=== PATIENT | female | born 1990 | race Caucasian/White ===

== ENCOUNTER 2016-09-25 16:45 | Emergency (ER) | payer SELFPAY ==
[2016-09-25 17:20] VITALS: BP 120/74
--- NOTE | 2016-09-25 18:34 | EDM.PDOC ---
ED [facility] GENERAL MEDICAL PROBLEM - General Chief Complaint: IT APPLICATION ARCHITECT Problem Stated Complaint: PT HAS STOMACH PAINS, AND BLEEDING Time Seen by Provider: 09/25/16 17:05 Source of Information: Reports: Patient History Limitations: Reports: No Limitations - History of Present Illness INITIAL COMMENTS - FREE TEXT/NARRATIVE: History of present illness: [26-year-old female comes in complaining acute abdominal pain, and vaginal bleeding. Patient indicates that she is not using control and was told she can be in the past and has in fact had a few miscarriages.] Review of systems: As per history of present illness and below otherwise all systems reviewed and negative. Past medical history: As per history of present illness and as reviewed below otherwise noncontributory. Surgical history: As per history of present illness and as reviewed below otherwise noncontributory. Social history: No reported history of drug or alcohol abuse. Family history: As per history of present illness and as reviewed below otherwise noncontributory. Physical exam: HEENT: Atraumatic, normocephalic, pupils reactive, negative for conjunctival pallor or scleral icterus, mucous membranes moist, throat clear, neck supple, nontender, trachea midline. Lungs: Clear to auscultation, breath sounds equal bilaterally, chest nontender. Heart: S1S2, regular, negative for clicks, rubs, or JVD. Abdomen: Soft, nondistended, nontender. Negative for masses or hepatosplenomegaly. Negative for costovertebral tenderness. Pelvis: Stable nontender. Genitourinary: Deferred. Rectal: Deferred. Extremities: Atraumatic, negative for cords or calf pain. Neurovascular unremarkable. Neuro: Awake, alert, oriented. Cranial nerves II through XII unremarkable. Cerebellum unremarkable. Motor and sensory unremarkable throughout. Exam nonfocal. Global assessment is benign save is noted in the subjective clinic complaint within the HPI Diagnostics: [First trimester vaginal bleeding workup] Therapeutics: [] Impression: [Vaginal bleeding] Plan: [Followup with PCP in 3-7 days] Definitive disposition and diagnosis as appropriate pending reevaluation and review of above. Abdominal Pain Score (Numeric/FACES): 5 - Related Data Allergies Allergy/AdvReac Type Severity Reaction Status Date / Time codeine Allergy Other Verified 09/25/16 17:05 Home Meds: Home Meds . [No Known Home Meds] 09/25/16 [History] Past Medical History - Past Health History Medical/Surgical History: Denies Medical/Surgical History Social & Family History - Tobacco Use Smoking Status *Q: Current Every Day Smoker Years of Tobacco use: 5 Packs/Tins Daily: 0.5 - Caffeine Use Caffeine Use: Reports: None - Recreational Drug Use Recreational Drug Use: No ED ROS GENERAL - Review of Systems Review Of Systems: See Below (History of present illness) ED EXAM, GENERAL - Physical Exam Exam: See Below (See history of present illness) Course - Vital Signs Last Recorded V/S: Last Vital Signs Temp 36.6 C 09/25/16 17:05 Pulse 116 H 09/25/16 17:05 Resp 18 09/25/16 17:05 BP 120/74 09/25/16 17:05 Pulse Ox 97 09/25/16 17:05 - Orders/Labs/Meds Orders: Active Orders 24 hr Category Date Time Status OB 1st Tri Sgl 1st Gest [US] Stat Exams 09/25/16 17:09 Ordered Labs: Laboratory Tests 09/25/16 09/25/16 09/25/16 Range/Units 17:10 17:22 17:22 WBC 6.78 (4.0-11.0) K/uL RBC 4.50 (4.30-5.90) M/uL Hgb 13.6 (12.0-16.0) g/dL Hct 41.0 (36.0-46.0) % MCV 91.1 (80.0-98.0) fL MCH 30.2 (27.0-32.0) pg MCHC 33.2 (31.0-37.0) g/dL RDW Std Deviation 43.4 (28.0-62.0) fl RDW Coeff of Alvino 13 (11.0-15.0) % Plt Count 234 (150-400) K/uL MPV 10.10 (7.40-12.00) fL Neut % (Auto) 55.9 (48.0-80.0) % Lymph % (Auto) 38.8 (16.0-40.0) % Forrest % (Auto) 4.3 (0.0-15.0) % Eos % (Auto) 0.9 (0.0-7.0) % Baso % (Auto) 0.1 (0.0-1.5) % Neut # (Auto) 3.8 (1.4-5.7) K/uL Lymph # (Auto) 2.6 H (0.6-2.4) K/uL Forrest # (Auto) 0.3 (0.0-0.8) K/uL Eos # (Auto) 0.1 (0.0-0.7) K/uL Baso # (Auto) 0.0 (0.0-0.1) K/uL Nucleated RBC % 0.0 /100WBC Nucleated RBCs # 0 K/uL HCG, Quant < 1.2 mIU/mL Urine Color YELLOW Urine Appearance CLEAR Urine pH 6.0 (5.0-8.0) Ur Specific [place] >= 1.030 (1.001-1.035) Urine Protein NEGATIVE (NEGATIVE) mg/dL Urine Glucose (UA) NEGATIVE (NEGATIVE) mg/dL Urine Ketones NEGATIVE (NEGATIVE) mg/dL Urine Occult Blood MODERATE (NEGATIVE) Urine Nitrite NEGATIVE (NEGATIVE) Urine Bilirubin NEGATIVE (NEGATIVE) Urine Urobilinogen 0.2 (<2.0) EU/dL Ur Leukocyte Esterase NEGATIVE (NEGATIVE) Urine RBC 0-1 (0-2/HPF) Urine WBC 0-1 (0-5/HPF) Ur Epithelial Cells FEW (NONE-FEW) Calcium Oxalate Crystal RARE (NEGATIVE) Amorphous Sediment FEW (NEGATIVE) Urine Bacteria FEW (NEGATIVE) Blood Type 09/25/16 Range/Units 17:22 WBC (4.0-11.0) K/uL RBC (4.30-5.90) M/uL Hgb (12.0-16.0) g/dL Hct (36.0-46.0) % MCV (80.0-98.0) fL MCH (27.0-32.0) pg MCHC (31.0-37.0) g/dL RDW Std Deviation (28.0-62.0) fl RDW Coeff of Alvino (11.0-15.0) % Plt Count (150-400) K/uL MPV (7.40-12.00) fL Neut % (Auto) (48.0-80.0) % Lymph % (Auto) (16.0-40.0) % Forrest % (Auto) (0.0-15.0) % Eos % (Auto) (0.0-7.0) % Baso % (Auto) (0.0-1.5) % Neut # (Auto) (1.4-5.7) K/uL Lymph # (Auto) (0.6-2.4) K/uL Forrest # (Auto) (0.0-0.8) K/uL Eos # (Auto) (0.0-0.7) K/uL Baso # (Auto) (0.0-0.1) K/uL Nucleated RBC % /100WBC Nucleated RBCs # K/uL HCG, Quant mIU/mL Urine Color Urine Appearance Urine pH (5.0-8.0) Ur Specific [place] (1.001-1.035) Urine Protein (NEGATIVE) mg/dL Urine Glucose (UA) (NEGATIVE) mg/dL Urine Ketones (NEGATIVE) mg/dL Urine Occult Blood (NEGATIVE) Urine Nitrite (NEGATIVE) Urine Bilirubin (NEGATIVE) Urine Urobilinogen (<2.0) EU/dL Ur Leukocyte Esterase (NEGATIVE) Urine RBC (0-2/HPF) Urine WBC (0-5/HPF) Ur Epithelial Cells (NONE-FEW) Calcium Oxalate Crystal (NEGATIVE) Amorphous Sediment (NEGATIVE) Urine Bacteria (NEGATIVE) Blood Type AB POSITIVE Departure - Departure Time of Disposition: 19:31 Disposition: Home, Self-Care 01 Condition: good Clinical Impression: Vaginal bleeding - Discharge Information Forms: ED Department Discharge Additional Instructions: The following information is given to patients seen in the emergency department who are being discharged to home. This information is to outline your options for follow-up care. We provide all patients seen in our emergency department with a follow-up referral. The need for follow-up, as well as the timing and circumstances, are variable depending upon the specifics of your emergency department visit. If you don't have a primary care physician on staff, we will provide you with a referral. We always advise you to contact your personal physician following an emergency department visit to inform them of the circumstance of the visit and for follow-up with them and/or the need for any referrals to a consulting specialist. The emergency department will also refer you to a specialist when appropriate. This referral assures that you have the opportunity for follow-up care with a specialist. All of these measure are taken in an effort to provide you with optimal care, which includes your follow-up. Under all circumstances we always encourage you to contact your private physician who remains a resource for coordinating your care. When calling for follow-up care, please make the office aware that this follow-up is from your recent emergency room visit. If for any reason you are refused follow-up, please contact the [facility] Emergency Department at and asked to speak to the emergency department charge nurse. Followup with outpatient primary care provider in 48 hours for repeat hCG level Return to ED as needed as discussed - My Orders Last 24 Hours: My Active Orders 09/25/16 17:09 OB 1st Tri Sgl 1st Gest [US] Stat - Assessment/Plan Last 24 Hours: My Active Orders 09/25/16 17:09 OB 1st Tri Sgl 1st Gest [US] Stat
--- NOTE | 2016-09-26 13:39 | US ---
EXAM DATE: 09/25/16 PATIENT'S AGE: 26 Patient: CRYSTAL KELLEY Facility: [place], [place] Site . Site : 1990 Study: US Pelvis [id number] 6:48:08 PM Ordering Physician: Doctor Rivera Final Report: INDICATION: A reported positive test. Bleeding. TECHNIQUE: Ultrasound OB pelvis transabdominal and transvaginal. Real-time dobbs-scale imaging of the pelvis was performed. COMPARISON: None available FINDINGS: The uterus is retroverted. The endometrial echo complex measures 6 millimeters. No intrauterine gestational sac is seen. There is small fluid in the endometrial cavity. There is a 1.7 x 0.9 centimeter heterogeneous, mildly hypoechoic area in the region of the endocervical canal which could represent debris or blood products. The right ovary measures 3.0 x 2.6 x 2.0 centimeters and the left ovary measures 2.3 x 1.1 x 1.5 centimeters. Doppler flow is documented in both ovaries. Small free fluid is seen in the cul-de-sac. IMPRESSION: No intrauterine gestation seen. A heterogeneous ovoid area in the region of the endocervical canal may represent debris/blood products. The findings could represent a spontaneous in progress, however an early intrauterine gestation or an ectopic gestation are not excluded. Correlate with beta HCG levels and a short-term followup study. Dictated by Eric Case MD @ 09/25/2016 7:16:49 PM Dictated by: Eric Case MD @ 09/25/2016 19:17:02 (Electronic Signature) Report Signed by Proxy. RUTHIE
== END 2016-09-25 19:44 | disposition home or self-care (01) ==
LOC: MW.ED 16:45 → MERGE 16:45 → MW.ED 19:43
DX: O46.91 Antepartum hemorrhage, unspecified, first trimester (principal); O99.331 Smoking (tobacco) complicating pregnancy, first trimester; F17.210 Nicotine dependence, cigarettes, uncomplicated; Z88.5 Allergy status to narcotic agent
CPT/HCPCS: 36415; 76801; 76801-26; 81001; 84702; 85025; 86900; 86901; 99283; 99284-25

== ENCOUNTER 2017-10-07 16:25 | Emergency (ER) | payer SELFPAY ==
--- NOTE | 2017-10-07 16:38 | EDM.PDOC ---
ED [facility] GENERAL MEDICAL PROBLEM - General Chief Complaint: Abdominal Pain Stated Complaint: LOWER BACK AND ABDOMINAL PAIN Time Seen by Provider: 10/07/17 16:38 Source of Information: Reports: Patient History Limitations: Reports: No Limitations - History of Present Illness INITIAL COMMENTS - FREE TEXT/NARRATIVE: HISTORY AND PHYSICAL: History of present illness: Patient is a 27-year-old female who is brought to the emergency room with complaints of an otherwise abdominal pain more so in the epigastrium, nausea and mid low back pain. She states she's had these symptoms over the last 2 days and have not improved. She denies any fever, chills, chest pain, shortness of breath or cough. Denies any vomiting, diarrhea or constipation. Review of systems: As per history of present illness and below otherwise all systems reviewed and negative. Past medical history: As per history of present illness and as reviewed below otherwise noncontributory. Surgical history: As per history of present illness and as reviewed below otherwise noncontributory. Social history: No reported history of drug or alcohol abuse. Family history: As per history of present illness and as reviewed below otherwise noncontributory. Physical exam: General: Well-developed and well-nourished 27 she'll female. Alert and oriented. Nontoxic appearing and in no acute distress. HEENT: Atraumatic, normocephalic, pupils equal and reactive bilaterally, negative for conjunctival pallor or scleral icterus, mucous membranes moist, throat clear, neck supple, nontender, trachea midline. No drooling or trismus noted. No meningeal signs Lungs: Clear to auscultation, breath sounds equal bilaterally, chest nontender. Heart: S1S2, regular rate and rhythm without overt murmur Abdomen: Soft, nondistended, nontender. Negative for masses or hepatosplenomegaly. Negative for costovertebral tenderness. Pelvis: Stable nontender. Genitourinary: Deferred. Rectal: Deferred. Skin: Intact, warm, dry. No lesions or rashes noted. Extremities: Atraumatic, negative for cords or calf pain. Neurovascular unremarkable. Neuro: Awake, alert, oriented. Cranial nerves II through XII unremarkable. Cerebellum unremarkable. Motor and sensory unremarkable throughout. Exam nonfocal. Notes: Diagnostics: CBC, CMP, UA, urine , H pylori Therapeutics: GI cocktail Impression: Abdominal pain Plan: 1. All labs and imaging are within normal limits. 2. [place] diet for the next 24-48 hours. Advance as tolerated. Zofran has been prescribed for nausea management. 3. Follow-up with your primary care provider in the next 1-2 days or return to the ED as needed and as discussed. Definitive disposition and diagnosis as appropriate pending reevaluation and review of above. Onset: Today Upper Abdominal Pain Score (Numeric/FACES): 7 - Related Data Allergies Allergy/AdvReac Type Severity Reaction Status Date / Time codeine Allergy Other Verified 10/07/17 16:33 Home Meds: Home Meds . [No Known Home Meds] 09/25/16 [History] Past Medical History - Past Health History Medical/Surgical History: Denies Medical/Surgical History Gastrointestinal History: Reports: Cholelithiasis Social & Family History - Family History Family Medical History: Noncontributory - Tobacco Use Smoking Status *Q: Current Every Day Smoker Years of Tobacco use: 10 Packs/Tins Daily: 1 - Caffeine Use Caffeine Use: Reports: Coffee, Energy Drinks, Soda - Recreational Drug Use Recreational Drug Use: No ED ROS GENERAL - Review of Systems Review Of Systems: ROS reveals no pertinent complaints other than HPI. ED EXAM, RENAL/ - Physical Exam Exam: See Below (See dictation) Course - Vital Signs Last Recorded V/S: Last Vital Signs Temp 98.4 F 10/07/17 16:31 Pulse 88 10/07/17 16:31 Resp 18 10/07/17 16:31 BP 143/79 H 10/07/17 16:31 Pulse Ox 98 10/07/17 16:31 - Orders/Labs/Meds Orders: Active Orders 24 hr Category Date Time Status Abdomen 2V AP Flat Upright [CR] Stat Exams 10/07/17 16:44 Taken HCG QUALITATIVE,URINE [URCHEM] Stat Lab 10/07/17 16:50 Ordered UA W/MICROSCOPIC [URIN] Stat Lab 10/07/17 16:50 Ordered Labs: Laboratory Tests 10/07/17 10/07/17 10/07/17 Range/Units 16:50 16:50 17:08 WBC 5.94 (4.0-11.0) K/uL RBC 4.67 (4.30-5.90) M/uL Hgb 14.5 (12.0-16.0) g/dL Hct 41.7 (36.0-46.0) % MCV 89.3 (80.0-98.0) fL MCH 31.0 (27.0-32.0) pg MCHC 34.8 (31.0-37.0) g/dL RDW Std Deviation 43.8 (28.0-62.0) fl RDW Coeff of Alvino 14 (11.0-15.0) % Plt Count 199 (150-400) K/uL MPV 9.50 (7.40-12.00) fL Neut % (Auto) 46.5 L (48.0-80.0) % Lymph % (Auto) 40.9 H (16.0-40.0) % [place] % (Auto) 10.4 (0.0-15.0) % Eos % (Auto) 1.7 (0.0-7.0) % Baso % (Auto) 0.5 (0.0-1.5) % Neut # (Auto) 2.8 (1.4-5.7) K/uL Lymph # (Auto) 2.4 (0.6-2.4) K/uL [place] # (Auto) 0.6 (0.0-0.8) K/uL Eos # (Auto) 0.1 (0.0-0.7) K/uL Baso # (Auto) 0.0 (0.0-0.1) K/uL Nucleated RBC % 0.0 /100WBC Nucleated RBCs # 0 K/uL Sodium (136-145) mmol/L Potassium (3.5-5.1) mmol/L Chloride (98-107) mmol/L Carbon Dioxide (21.0-32.0) mmol/L BUN (7.0-18.0) mg/dL Creatinine (0.6-1.0) mg/dL Est Cr Clr Drug Dosing mL/min Estimated GFR (MDRD) ml/min Glucose (74-106) mg/dL Calcium (8.5-10.1) mg/dL Total Bilirubin (0.2-1.0) mg/dL AST (15-37) IU/L ALT (14-63) IU/L Alkaline Phosphatase (46-116) U/L Total Protein (6.4-8.2) g/dL Albumin (3.4-5.0) g/dL Globulin (2.0-3.5) g/dL Albumin/Globulin Ratio (1.3-2.8) Urine Color YELLOW Urine Appearance CLEAR Urine pH 7.0 (5.0-8.0) Ur Specific [place] 1.010 (1.001-1.035) Urine Protein NEGATIVE (NEGATIVE) mg/dL Urine Glucose (UA) NEGATIVE (NEGATIVE) mg/dL Urine Ketones NEGATIVE (NEGATIVE) mg/dL Urine Occult Blood NEGATIVE (NEGATIVE) Urine Nitrite NEGATIVE (NEGATIVE) Urine Bilirubin NEGATIVE (NEGATIVE) Urine Urobilinogen 0.2 (<2.0) EU/dL Ur Leukocyte Esterase NEGATIVE (NEGATIVE) Urine RBC 0-1 (0-2/HPF) Urine WBC 0-1 (0-5/HPF) Ur Epithelial Cells RARE (NONE-FEW) Urine Bacteria RARE (NEGATIVE) Urine HCG, Qual NEGATIVE (NEGATIVE) H. pylori IgG Antibody (NEG) 10/07/17 10/07/17 Range/Units 17:08 17:08 WBC (4.0-11.0) K/uL RBC (4.30-5.90) M/uL Hgb (12.0-16.0) g/dL Hct (36.0-46.0) % MCV (80.0-98.0) fL MCH (27.0-32.0) pg MCHC (31.0-37.0) g/dL RDW Std Deviation (28.0-62.0) fl RDW Coeff of Alvino (11.0-15.0) % Plt Count (150-400) K/uL MPV (7.40-12.00) fL Neut % (Auto) (48.0-80.0) % Lymph % (Auto) (16.0-40.0) % [place] % (Auto) (0.0-15.0) % Eos % (Auto) (0.0-7.0) % Baso % (Auto) (0.0-1.5) % Neut # (Auto) (1.4-5.7) K/uL Lymph # (Auto) (0.6-2.4) K/uL [place] # (Auto) (0.0-0.8) K/uL Eos # (Auto) (0.0-0.7) K/uL Baso # (Auto) (0.0-0.1) K/uL Nucleated RBC % /100WBC Nucleated RBCs # K/uL Sodium 142 (136-145) mmol/L Potassium 4.4 (3.5-5.1) mmol/L Chloride 105 (98-107) mmol/L Carbon Dioxide 28.0 (21.0-32.0) mmol/L BUN 19 H (7.0-18.0) mg/dL Creatinine 0.8 (0.6-1.0) mg/dL Est Cr Clr Drug Dosing 99.20 mL/min Estimated GFR (MDRD) > 60.0 ml/min Glucose 99 (74-106) mg/dL Calcium 9.7 (8.5-10.1) mg/dL Total Bilirubin 0.5 (0.2-1.0) mg/dL AST 60 H (15-37) IU/L ALT 62 (14-63) IU/L Alkaline Phosphatase 57 (46-116) U/L Total Protein 7.5 (6.4-8.2) g/dL Albumin 4.1 (3.4-5.0) g/dL Globulin 3.4 (2.0-3.5) g/dL Albumin/Globulin Ratio 1.2 L (1.3-2.8) Urine Color Urine Appearance Urine pH (5.0-8.0) Ur Specific [place] (1.001-1.035) Urine Protein (NEGATIVE) mg/dL Urine Glucose (UA) (NEGATIVE) mg/dL Urine Ketones (NEGATIVE) mg/dL Urine Occult Blood (NEGATIVE) Urine Nitrite (NEGATIVE) Urine Bilirubin (NEGATIVE) Urine Urobilinogen (<2.0) EU/dL Ur Leukocyte Esterase (NEGATIVE) Urine RBC (0-2/HPF) Urine WBC (0-5/HPF) Ur Epithelial Cells (NONE-FEW) Urine Bacteria (NEGATIVE) Urine HCG, Qual (NEGATIVE) H. pylori IgG Antibody NEGATIVE (NEG) Meds: Medications Discontinued Medications Generic Name Dose Route Start Last Admin Trade Name Freq PRN Reason Stop Dose Admin Al Hydroxide/Mg Hydroxide 15 0 ml 10/07/17 16:42 10/07/17 17:03 ml/ Metoclopramide HCl 5 mg/ PO 10/07/17 16:43 25 each Lidocaine HCl 5 ml ONETIME ONE Administration Departure - Departure Time of Disposition: 18:32 Disposition: Home, Self-Care 01 Clinical Impression: Abdominal pain Qualifiers: Abdominal location: generalized Qualified Code(s): R10.84 - Generalized abdominal pain - Discharge Information Instructions: Abdominal Pain, Adult Referrals: PCP,None [Primary Care Provider] - Forms: ED Department Discharge Additional Instructions: The following information is given to patients seen in the emergency department who are being discharged to home. This information is to outline your options for follow-up care. We provide all patients seen in our emergency department with a follow-up referral. The need for follow-up, as well as the timing and circumstances, are variable depending upon the specifics of your emergency department visit. If you don't have a primary care physician on staff, we will provide you with a referral. We always advise you to contact your personal physician following an emergency department visit to inform them of the circumstance of the visit and for follow-up with them and/or the need for any referrals to a consulting specialist. The emergency department will also refer you to a specialist when appropriate. This referral assures that you have the opportunity for follow-up care with a specialist. All of these measure are taken in an effort to provide you with optimal care, which includes your follow-up. Under all circumstances we always encourage you to contact your private physician who remains a resource for coordinating your care. When calling for follow-up care, please make the office aware that this follow-up is from your recent emergency room visit. If for any reason you are refused follow-up, please contact the [facility] Emergency Department at and asked to speak to the emergency department charge nurse. [facility] Primary Care [address] [place] [id number] 1. All labs and imaging are within normal limits. 2. [place] diet for the next 24-48 hours. Advance as tolerated. Zofran has been prescribed for nausea management. 3. Follow-up with your primary care provider in the next 1-2 days or return to the ED as needed and as discussed. - My Orders Last 24 Hours: My Active Orders 10/07/17 16:44 Abdomen 2V AP Flat Upright [CR] Stat 10/07/17 16:50 HCG QUALITATIVE,URINE [URCHEM] Stat UA W/MICROSCOPIC [URIN] Stat - Assessment/Plan Last 24 Hours: My Active Orders 10/07/17 16:44 Abdomen 2V AP Flat Upright [CR] Stat 10/07/17 16:50 HCG QUALITATIVE,URINE [URCHEM] Stat UA W/MICROSCOPIC [URIN] Stat
[2017-10-07] MEDS ORDERED: Alum Hydrox/Mag Hydrox/Simeth 15 ML, Metoclopramide 5 MG, Lidocaine 2% 5 ML PO ONE ×3 (16:42)
[2017-10-07 17:39] LABS: CHLORIDE,CL 105 mmol/L (98-107); SODIUM,NA 142 mmol/L (136-145)
[2017-10-07 18:45] VITALS: BP 104/56
--- NOTE | 2017-10-08 09:20 | CR ---
EXAM DATE: 10/07/17 PATIENT'S AGE: 27 Patient: CRYSTAL KELLEY Facility: [place], [place] Site . Site : 1990 Study: XRay Abdomen [id number] 5:36:20 PM Ordering Physician: Doctor Rivera Final Report: Indication: Abdominal pain with radiation into the back. Technique: Abdomen 3 view. Comparison: None. Findings: BOWEL: Bowel pattern is normal. The amount of colonic stool is within normal limits. OTHER: No sign of free air. No sign of soft tissue mass. No suspicious calcifications to suggest kidney or ureteral stone. Osseous structures are unremarkable for age. Impression: Unremarkable abdomen. No finding to explain pain. Dictated by Wili Berg MD @ Oct 07 2017 6:23PM (Electronic Signature) Report Signed by Proxy. RUTHIE
== END 2017-10-07 18:42 | disposition home or self-care (01) ==
LOC: MW.ED 16:25
DX: R10.84 Generalized abdominal pain (principal); R10.13 Epigastric pain; M54.5 Low back pain; R11.0 Nausea; F17.210 Nicotine dependence, cigarettes, uncomplicated; Z88.5 Allergy status to narcotic agent
CPT/HCPCS: 36415; 74019; 80053; 81001; 81025; 85025; 86677; 99284; A9270; 99283

== ENCOUNTER 2017-10-13 07:11 | Emergency (ER) | payer OTHER ==
[2017-10-13] MEDS ORDERED: Ondansetron 4 MG/2 ML SDV IVPUSH ONE (07:32)
[2017-10-13] MEDS ORDERED: Ketorolac 30 MG/ML SDV IVPUSH ONE (07:32)
[2017-10-13] MEDS ORDERED: Sodium Chloride 0.9% 1,000 ML IV ONE (07:32)
--- NOTE | 2017-10-13 07:32 | EDM.PDOC ---
ED HPI GENERAL MEDICAL PROBLEM - General Chief Complaint: Back Pain or Injury Stated Complaint: BACK PAIN Time Seen by Provider: 10/13/17 07:32 Source of Information: Reports: Patient - History of Present Illness INITIAL COMMENTS - FREE TEXT/NARRATIVE: HISTORY AND PHYSICAL: History of present illness: [Patient presents with epigastric pain radiating to the back rates 8 out of 10 this is after eating macaroni and cheese mashed potatoes with gravy and fried chicken last night She has a known history of gallbladder disease apparently she has had a HIDA scan 5-6 years ago she was supposed to have her gallbladder removed however were removing on an elective basis and symptoms improved to where she has not required surgery in this interim however she has had 3-5 bouts of pain over the last month No fever intermittent nausea no chest pain shortness breath headache dizziness palpitation no bowel or urine symptoms ] Review of systems: As per history of present illness and below otherwise all systems reviewed and negative. Past medical history: As per history of present illness and as reviewed below otherwise noncontributory. Surgical history: As per history of present illness and as reviewed below otherwise noncontributory. Social history: No reported history of drug or alcohol abuse. Family history: As per history of present illness and as reviewed below otherwise noncontributory. Physical exam: HEENT: Atraumatic, normocephalic, pupils reactive, negative for conjunctival pallor or scleral icterus, mucous membranes moist, throat clear, neck supple, nontender, trachea midline. Lungs: Clear to auscultation, breath sounds equal bilaterally, chest nontender. Heart: S1S2, regular, negative for clicks, rubs, or JVD. Abdomen: Soft, nondistended, nontender. Negative for masses or hepatosplenomegaly. Negative for costovertebral tenderness. Pelvis: Stable nontender. Genitourinary: Deferred. Rectal: Deferred. Extremities: Atraumatic, negative for cords or calf pain. Neurovascular unremarkable. Neuro: Awake, alert, oriented. Cranial nerves II through XII unremarkable. Cerebellum unremarkable. Motor and sensory unremarkable throughout. Exam nonfocal. Diagnostics: [CBC CMP UA Lipase Ultrasound right upper quadrant Review of lab and flat and upright on file ] Follow-up Gen. surgery Therapeutics: [ liter normal saline bolus Toradol 30 mg IV Zofran 8 mg IV ] Impression: [ abdominal pain ]-resolved after treatment above Cholelithiasis Definitive disposition and diagnosis as appropriate pending reevaluation and review of above. back Pain Score (Numeric/FACES): 9 - Related Data Allergies Allergy/AdvReac Type Severity Reaction Status Date / Time codeine Allergy Other Verified 10/07/17 16:33 Home Meds: Home Meds . [No Known Home Meds] 09/25/16 [History] Past Medical History - Past Health History Medical/Surgical History: Denies Medical/Surgical History Gastrointestinal History: Reports: Cholelithiasis Social & Family History - Family History Family Medical History: Noncontributory - Caffeine Use Caffeine Use: Reports: Coffee, Energy Drinks, Soda ED ROS GENERAL - Review of Systems Review Of Systems: See Below ED EXAM, GENERAL - Physical Exam Exam: See Below Course - Vital Signs Last Recorded V/S: Last Vital Signs Temp 96.5 F 10/13/17 07:15 Pulse 102 H 10/13/17 07:15 Resp 18 10/13/17 07:15 BP 121/87 10/13/17 07:15 Pulse Ox 98 10/13/17 07:15 - Orders/Labs/Meds Orders: Active Orders 24 hr Category Date Time Status Abdomen Ltd [US] Stat Exams 10/13/17 08:53 Taken Labs: Laboratory Tests 10/13/17 10/13/17 10/13/17 Range/Units 07:38 07:38 08:50 WBC 5.26 (4.0-11.0) K/uL RBC 4.18 L (4.30-5.90) M/uL Hgb 12.9 (12.0-16.0) g/dL Hct 37.2 (36.0-46.0) % MCV 89.0 (80.0-98.0) fL MCH 30.9 (27.0-32.0) pg MCHC 34.7 (31.0-37.0) g/dL RDW Std Deviation 44.6 (28.0-62.0) fl RDW Coeff of Alvino 14 (11.0-15.0) % Plt Count 212 (150-400) K/uL MPV 9.70 (7.40-12.00) fL Neut % (Auto) 32.9 L (48.0-80.0) % Lymph % (Auto) 55.7 H (16.0-40.0) % Green % (Auto) 7.8 (0.0-15.0) % Eos % (Auto) 3.0 (0.0-7.0) % Baso % (Auto) 0.6 (0.0-1.5) % Neut # (Auto) 1.7 (1.4-5.7) K/uL Lymph # (Auto) 2.9 H (0.6-2.4) K/uL Green # (Auto) 0.4 (0.0-0.8) K/uL Eos # (Auto) 0.2 (0.0-0.7) K/uL Baso # (Auto) 0.0 (0.0-0.1) K/uL Nucleated RBC % 0.0 /100WBC Nucleated RBCs # 0 K/uL Sodium 142 (136-145) mmol/L Potassium 4.0 (3.5-5.1) mmol/L Chloride 109 H (98-107) mmol/L Carbon Dioxide 24.5 (21.0-32.0) mmol/L BUN 14 (7.0-18.0) mg/dL Creatinine 0.7 (0.6-1.0) mg/dL Est Cr Clr Drug Dosing 113.37 mL/min Estimated GFR (MDRD) > 60.0 ml/min Glucose 90 (74-106) mg/dL Calcium 8.6 (8.5-10.1) mg/dL Total Bilirubin 0.3 (0.2-1.0) mg/dL AST 46 H (15-37) IU/L ALT 90 H (14-63) IU/L Alkaline Phosphatase 53 (46-116) U/L Total Protein 6.9 (6.4-8.2) g/dL Albumin 3.7 (3.4-5.0) g/dL Globulin 3.2 (2.0-3.5) g/dL Albumin/Globulin Ratio 1.2 L (1.3-2.8) Amylase 60 (25-115) U/L Lipase 204 (73-393) U/L Meds: Medications Discontinued Medications Generic Name Dose Route Start Last Admin Trade Name Freq PRN Reason Stop Dose Admin Sodium Chloride 1,000 mls @ 999 mls/hr 10/13/17 07:32 10/13/17 08:48 Normal Saline IV 10/13/17 08:32 999 mls/hr STAT ONE Administration Ketorolac Tromethamine 30 mg 10/13/17 07:32 10/13/17 08:49 Toradol IVPUSH 10/13/17 07:33 30 mg ONETIME ONE Administration Ondansetron HCl 8 mg 10/13/17 07:32 10/13/17 08:50 Zofran IVPUSH 10/13/17 07:33 8 mg ONETIME ONE Administration Ondansetron HCl Confirm 10/13/17 08:57 10/13/17 09:44 Zofran Administered 10/13/17 08:58 Not Given Dose 4 mg .ROUTE .STK-MED ONE Departure - Departure Time of Disposition: 10:14 Disposition: Home, Self-Care 01 Condition: Good Clinical Impression: Cholelithiasis - Discharge Information Referrals: PCP,None [Primary Care Provider] - Forms: ED Department Discharge Additional Instructions: Medication as prescribed Franklin diet as discussed Return if symptoms persist or worsen Follow-up with general surgery, call to schedule appropriate appointment early this week [facility] - General Surgery [address], [address] [place] [address] The following information is given to patients seen in the emergency department who are being discharged to home. This information is to outline your options for follow-up care. We provide all patients seen in our emergency department with a follow-up referral. The need for follow-up, as well as the timing and circumstances, are variable depending upon the specifics of your emergency department visit. If you don't have a primary care physician on staff, we will provide you with a referral. We always advise you to contact your personal physician following an emergency department visit to inform them of the circumstance of the visit and for follow-up with them and/or the need for any referrals to a consulting specialist. The emergency department will also refer you to a specialist when appropriate. This referral assures that you have the opportunity for follow-up care with a specialist. All of these measure are taken in an effort to provide you with optimal care, which includes your follow-up. Under all circumstances we always encourage you to contact your private physician who remains a resource for coordinating your care. When calling for follow-up care, please make the office aware that this follow-up is from your recent emergency room visit. If for any reason you are refused follow-up, please contact the [facility] emergency department at and asked to speak to the emergency department charge nurse. - My Orders Last 24 Hours: My Active Orders 10/13/17 08:53 Abdomen Ltd [US] Stat - Assessment/Plan Last 24 Hours: My Active Orders 10/13/17 08:53 Abdomen Ltd [US] Stat
[2017-10-13 08:10] LABS: CHLORIDE,CL 109 mmol/L (98-107); SODIUM,NA 142 mmol/L (136-145)
[2017-10-13] MEDS ORDERED: Ondansetron 4 MG/2 ML SDV ONE (08:57)
[2017-10-13 10:40] VITALS: BP 95/50
--- NOTE | 2017-10-14 15:25 | US ---
EXAM DATE: 10/13/17 PATIENT'S AGE: 27 Patient: CRYSTAL KELLEY Facility: [place], [place] Site . Site : 1990 Study: US Abdomen [id number]/13/2017 9:59:11 AM Ordering Physician: Jose A Lyn Final Report: INDICATION: Right upper quadrant pain. FINDINGS: Transabdominal imaging. Visualized pancreas is unremarkable. Echogenic mobile stone in the gallbladder. No wall thickening. Reported positive sonographic Esqueda`s sign. Common bile duct is 3 mm at the heri hepatis. Liver is 17.4 cm in length. Normal echogenicity. Patent IVC. Right kidney is sonographically normal. Length of 11.3 cm. No ascites in the field of view. IMPRESSION: Cholelithiasis. Positive sonographic Esqueda`s sign in the setting of normal wall thickness and no pericholecystic fluid or edema is nonspecific for acute cholecystitis. Clinical correlation recommended. Dictated by Abiodun Bean MD @ Oct 13 2017 10:03AM (Electronic Signature) Report Signed by Proxy. RUTHIE
== END 2017-10-13 10:37 | disposition home or self-care (01) ==
LOC: MW.ED 07:11
DX: K80.20 Calculus of gallbladder without cholecystitis without obstruction (principal); Z88.5 Allergy status to narcotic agent
CPT/HCPCS: 36415; 76705; 80053; 82150; 83690; 85025; 96361; 96374; 96375; 99284; J1885; J2405; J7040; 99283

== ENCOUNTER 2017-10-15 20:07 | Emergency (ER) | payer SELFPAY ==
[2017-10-15] MEDS ORDERED: Ketorolac 60 MG/2 ML SDV IM ONE (20:43)
--- NOTE | 2017-10-15 20:51 | EDM.PDOC ---
ED HPI GENERAL MEDICAL PROBLEM - General Chief Complaint: Abdominal Pain Stated Complaint: GOLL BLADDER ATTACK Time Seen by Provider: 10/15/17 20:40 Source of Information: Reports: Patient History Limitations: Reports: No Limitations - History of Present Illness INITIAL COMMENTS - FREE TEXT/NARRATIVE: Patient presents reporting right upper quadrant pain. The patient states that she was here last week and diagnosed with gall bladder disease. She was given a referral to general surgery and prescriptions. She has not picked up her prescriptions and she has not made the appointment with general surgery as directed. She was also educated on a low-fat diet. She states that she "forgot" and took one bite of a bread stick this morning and immediately started having right upper quadrant pain. She also became nauseated but she did take some Zofran which she had on hand from previous. Her nausea has since subsided. No fever, chills or dysuria. No vomiting or diarrhea. Abdominal Pain Score (Numeric/FACES): 8 - Related Data Allergies Allergy/AdvReac Type Severity Reaction Status Date / Time codeine Allergy Unknown Other Verified 10/15/17 20:19 Home Meds: Home Meds . [No Known Home Meds] 09/25/16 [History] Past Medical History - Past Health History Medical/Surgical History: Denies Medical/Surgical History Gastrointestinal History: Reports: Cholelithiasis - Infectious Disease History Infectious Disease History: Reports: None Social & Family History - Family History Family Medical History: Noncontributory - Tobacco Use Smoking Status *Q: Current Every Day Smoker Years of Tobacco use: 10 Packs/Tins Daily: 1 - Caffeine Use Caffeine Use: Reports: Coffee, Energy Drinks, Soda ED ROS GENERAL - Review of Systems Review Of Systems: ROS reveals no pertinent complaints other than HPI. ED EXAM, GI/ABD - Physical Exam Exam: See Below Exam Limited By: No Limitations General Appearance: Alert, Moderate Distress (due to pain) Ears: Normal External Exam Nose: Normal Inspection Throat/Mouth: Normal Inspection Head: Atraumatic, Normocephalic Neck: Normal Inspection Respiratory/Chest: No Respiratory Distress, Lungs Clear, Normal Breath Sounds Cardiovascular: Normal Peripheral Pulses, Regular Rate, Rhythm, No Murmur GI/Abdominal Exam: Soft, No Distention, Tender (epigastric/RUQ) Back Exam: Normal Inspection Extremities: Normal Inspection Neurological: Alert, Oriented Psychiatric: Normal Affect, Normal Mood Skin Exam: Warm, Dry, Intact, Normal Color, No Rash Lymphatic: No Adenopathy Course - Vital Signs Last Recorded V/S: Last Vital Signs Temp 36.6 C 10/15/17 20:17 Pulse 71 10/15/17 20:17 Resp 20 10/15/17 20:17 BP 108/66 10/15/17 20:17 Pulse Ox 97 10/15/17 20:17 - Orders/Labs/Meds Meds: Medications Discontinued Medications Generic Name Dose Route Start Last Admin Trade Name Margret PRN Reason Stop Dose Admin Ketorolac Tromethamine 60 mg 10/15/17 20:43 Toradol IM 10/15/17 20:44 ONETIME ONE Departure - Departure Time of Disposition: 20:51 Disposition: Home, Self-Care 01 Condition: Good Clinical Impression: Gallbladder disease - Discharge Information Referrals: PCP,None [Primary Care Provider] - Eric Boston MD [Physician] - Additional Instructions: 1. Please make an appointment with Dr. Boston, [facility] - General Surgery, whom you were referred to [address], [address] [place] [id number] 2. Please fill the prescriptions you have already been given for pain and nausea.
[2017-10-15 21:13] VITALS: BP 107/62
== END 2017-10-15 21:10 | disposition home or self-care (01) ==
LOC: MW.ED 20:07
DX: K82.9 Disease of gallbladder, unspecified (principal); F17.210 Nicotine dependence, cigarettes, uncomplicated; Z88.5 Allergy status to narcotic agent
CPT/HCPCS: 96372; 99283; J1885

== ENCOUNTER 2017-11-13 22:17 | Emergency (ER) | payer SELFPAY ==
--- NOTE | 2017-11-13 22:36 | EDM.PDOC ---
ED HPI GENERAL MEDICAL PROBLEM - General Chief Complaint: Gastrointestinal Problem Stated Complaint: GALL BLADDER PAIN Time Seen by Provider: 11/13/17 22:32 - History of Present Illness INITIAL COMMENTS - FREE TEXT/NARRATIVE: HISTORY AND PHYSICAL: History of present illness: Patient is a 27-year-old female with history of known gallbladder disease is scheduled for cholecystectomy electively in December she states she is not following her diet now comes in with some biliary colic. She denies any other concern there's been no nausea no vomiting no fever no chills Review of systems: As per history of present illness and below otherwise all systems reviewed and negative. Past medical history: As per history of present illness and as reviewed below otherwise noncontributory. Surgical history: As per history of present illness and as reviewed below otherwise noncontributory. Social history: No reported history of drug or alcohol abuse. Family history: As per history of present illness and as reviewed below otherwise noncontributory. Physical exam: HEENT: Atraumatic, normocephalic, pupils reactive, negative for conjunctival pallor or scleral icterus, mucous membranes moist, throat clear, neck supple, nontender, trachea midline. Lungs: Clear to auscultation, breath sounds equal bilaterally, chest nontender. Heart: S1S2, regular, negative for clicks, rubs, or JVD. Abdomen: Soft, nondistended, mild tenderness in the right upper quadrant this is not well localized no rebound no guarding. Negative for masses or hepatosplenomegaly. Negative for costovertebral tenderness. Pelvis: Stable nontender. Genitourinary: Deferred. Rectal: Deferred. Extremities: Atraumatic, negative for cords or calf pain. Neurovascular unremarkable. Neuro: Awake, alert, oriented. Cranial nerves II through XII unremarkable. Cerebellum unremarkable. Motor and sensory unremarkable throughout. Exam nonfocal. Diagnostics: CBC CMP Therapeutics: None Impression: #1 biliary colic Definitive disposition and diagnosis as appropriate pending reevaluation and review of above. - Related Data Allergies Allergy/AdvReac Type Severity Reaction Status Date / Time codeine Allergy Unknown Nausea and Verified 11/01/17 09:26 Vomiting acetaminophen [From Vicodin] Allergy Nausea and Verified 11/01/17 09:26 Vomiting hydrocodone [From Vicodin] Allergy Nausea and Verified 11/01/17 09:26 Vomiting Home Meds: Home Meds . [No Known Home Meds] 05/23/17 [History] Past Medical History - Past Health History Medical/Surgical History: Denies Medical/Surgical History Gastrointestinal History: Reports: Cholelithiasis - Infectious Disease History Infectious Disease History: Reports: None Social & Family History - Family History Family Medical History: Noncontributory - Caffeine Use Caffeine Use: Reports: Coffee, Energy Drinks, Soda ED ROS GENERAL - Review of Systems Review Of Systems: ROS reveals no pertinent complaints other than HPI. ED EXAM, GENERAL - Physical Exam Exam: See Below (See dictation) Course - Orders/Labs/Meds Orders: Active Orders 24 hr Category Date Time Status CBC WITH AUTO DIFF [HEME] Stat Lab 11/13/17 22:34 Ordered COMPREHENSIVE METABOLIC PN,CMP [CHEM] Stat Lab 11/13/17 22:34 Ordered HCG QUALITATIVE,SERUM [CHEM] Stat Lab 11/13/17 22:34 Ordered Departure - Departure Time of Disposition: 22:35 Disposition: Home, Self-Care 01 Condition: Good Clinical Impression: Biliary colic - Discharge Information Additional Instructions: The following information is given to patients seen in the emergency department who are being discharged to home. This information is to outline your options for follow-up care. We provide all patients seen in our emergency department with a follow-up referral. The need for follow-up, as well as the timing and circumstances, are variable depending upon the specifics of your emergency department visit. If you don't have a primary care physician on staff, we will provide you with a referral. We always advise you to contact your personal physician following an emergency department visit to inform them of the circumstance of the visit and for follow-up with them and/or the need for any referrals to a consulting specialist. The emergency department will also refer you to a specialist when appropriate. This referral assures that you have the opportunity for followup care with a specialist. All of these measure are taken in an effort to provide you with optimal care, which includes your followup. Under all circumstances we always encourage you to contact your private physician who remains a resource for coordinating your care. When calling for followup care, please make the office aware that this follow-up is from your recent emergency room visit. If for any reason you are refused follow-up, please contact the [facility] emergency department at and asked to speak to the emergency department charge nurse. Diet as discussed Ultram as prescribed keep scheduled follow-up with general surgery and primary medical doctor return as needed as discussed[] - My Orders Last 24 Hours: My Active Orders 11/13/17 22:34 CBC WITH AUTO DIFF [HEME] Stat COMPREHENSIVE METABOLIC PN,CMP [CHEM] Stat HCG QUALITATIVE,SERUM [CHEM] Stat - Assessment/Plan Last 24 Hours: My Active Orders 11/13/17 22:34 CBC WITH AUTO DIFF [HEME] Stat COMPREHENSIVE METABOLIC PN,CMP [CHEM] Stat HCG QUALITATIVE,SERUM [CHEM] Stat
[2017-11-13 23:05] LABS: CHLORIDE,CL 107 mmol/L (98-107); SODIUM,NA 141 mmol/L (136-145)
[2017-11-14 00:17] VITALS: BP 122/71
== END 2017-11-14 00:17 | disposition home or self-care (01) ==
LOC: MW.ED 22:17
DX: K80.50 Calculus of bile duct without cholangitis or cholecystitis without obstruction (principal); Z88.5 Allergy status to narcotic agent; Z88.6 Allergy status to analgesic agent
CPT/HCPCS: 36415; 80053; 84703; 85025; 99283; 99284

== ENCOUNTER 2017-12-26 10:23 | Day surgery (SDC) | payer SELFPAY ==
[~2017-12-26 10:23] MED LIST: Lactated Ringers 1,000 ML IV SCH; ceFAZolin 2 GM in Premix Bag 1 BAG IV ONE
[2017-12-26] MEDS ORDERED: Sugammadex Sodium 200 MG/2 ML VIAL ONE (11:11)
[2017-12-26] MEDS ORDERED: Midazolam 1 MG/ML 2 ML SDV ONE (11:12)
[2017-12-26] MEDS ORDERED: Propofol 200 MG/20 ML SDV ONE (11:12)
[2017-12-26] MEDS ORDERED: fentaNYL 100 MCG/2 ML SDV ONE ×2 (11:12→12:54)
[2017-12-26] MEDS ORDERED: fentaNYL 250 MCG/5 ML SDV ONE (11:12)
[2017-12-26] MEDS ORDERED: Lidocaine 2% 5 ML SDV ONE (11:12)
[2017-12-26] MEDS ORDERED: Rocuronium 10 MG/ML 10 ML Syringe ONE (11:13)
[2017-12-26] MEDS ORDERED: Dexamethasone 4 MG/ML 5 ML MDV ONE (11:13)
[2017-12-26] MEDS ORDERED: Ketorolac 30 MG/ML SDV ONE (11:13)
[2017-12-26] MEDS ORDERED: Ondansetron 4 MG/2 ML SDV ONE (11:13)
[2017-12-26] MEDS ORDERED: ceFAZolin/Dextrose,Iso-Osmotic 2 GM/50 ML Duplex Bag IV ONE (11:14)
[2017-12-26] MEDS ORDERED: Bupivacaine 25%/EPINEPHrine/PF 30 ML ONE (11:17)
--- NOTE | 2017-12-26 11:46 | PCM.PREANE ---
Preanesthetic Assessment - Procedure Proposed Procedure: lap cholecystectomy - Anesthesia/Transfusion/Family Hx Anesthesia History: Prior Anesthesia Without Reaction Family History of Anesthesia Reaction: Other (see below) Transfusion History: No Prior Transfusion(s) Intubation History: Unknown - Review of Systems General: Other Pulmonary: No Symptoms Cardiovascular: No Symptoms Gastrointestinal: Abdominal Pain Neurological: No Symptoms Other: Reports: None - Physical Assessment NPO Status Date: 12/25/17 NPO Status Time: 22:00 O2 Sat by Pulse Oximetry: 97 Respiratory Rate: 16 Vital Signs: Last Vital Signs Temp 99.7 F 12/26/17 10:45 Pulse 97 12/26/17 10:45 Resp 16 12/26/17 10:45 BP 106/66 12/26/17 10:45 Pulse Ox 97 12/26/17 10:45 Height: 5 ft 6 in Weight: 142 lb ASA Class: 2 Mental Status: Alert & Oriented x3 Airway Class: Mallampati = 1 Dentition: Reports: Normal Dentition Thyro-Mental Finger Breadths: 3 Mouth Opening Finger Breadths: 3 ROM/Head Extension: Full Lungs: Clear to Auscultation, Normal Respiratory Effort Cardiovascular: Regular Rate, Regular Rhythm, No Murmurs - Lab Values: Laboratory Last Values Urine HCG, Qual NEGATIVE (NEGATIVE) 12/26/17 10:38 - Allergies Allergies/Adverse Reactions: Allergies Allergy/AdvReac Type Severity Reaction Status Date / Time codeine Allergy Unknown Nausea and Verified 12/23/17 09:14 Vomiting acetaminophen [From Vicodin] Allergy Nausea and Verified 12/23/17 09:14 Vomiting hydrocodone [From Vicodin] Allergy Nausea and Verified 12/23/17 09:14 Vomiting - Blood Blood Available: No Product(s) Available: None - Anesthesia Plan Pre-Op Medication Ordered: None - Acknowledgements Anesthesia Type Planned: General Anesthesia (OET) Pt an Appropriate Candidate for the Planned Anesthesia: Yes Alternatives and Risks of Anesthesia Discussed w Pt/Guardian: Yes Pt/Guardian Understands and Agrees with Anesthesia Plan: Yes PreAnesthesia Questionnaire - Past Health History Medical/Surgical History: Denies Medical/Surgical History Gastrointestinal History: Reports: Cholelithiasis [facility] History: Reports: Polycystic Ovaries, , Spontaneous Musculoskeletal History: Reports: Fracture Other Musculoskeletal History: hx fx arm - Infectious Disease History Infectious Disease History: Reports: None - Past Surgical History Head Surgeries/Procedures: Reports: None - SUBSTANCE USE Smoking Status *Q: Current Every Day Smoker Tobacco Use Within Last Twelve Months: Cigarettes Recreational Drug Type: Reports: Methamphetamine Recreational Drug Last Use: last used meth 3 weeks ago - HOME MEDS Home Medications: Home Meds Acetaminophen [Tylenol] 2 tab PO ASDIRECTED PRN 12/23/17 [History] Ondansetron HCl [Zofran] 4 mg PO ASDIRECTED PRN 12/23/17 [History] - CURRENT (IN HOUSE) MEDS Current Meds: Current Medications Lactated Ringer's (Ringers, Lactated) 1,000 mls @ 125 mls/hr IV ASDIRECTED KALI Last Admin: 12/26/17 11:00 Dose: 125 mls/hr Discontinued Medications Cefazolin Sodium/Dextrose (Ancef) Confirm Administered Dose 2 gm IV .STK-MED ONE Stop: 12/26/17 11:15 Dexamethasone (Dexamethasone) Confirm Administered Dose 20 mg .ROUTE .STK-MED ONE Stop: 12/26/17 11:14 Fentanyl (Sublimaze) Confirm Administered Dose 100 mcg .ROUTE .STK-MED ONE Stop: 12/26/17 11:13 Fentanyl (Sublimaze) Confirm Administered Dose 250 mcg .ROUTE .STK-MED ONE Stop: 12/26/17 11:13 Cefazolin Sodium/Dextrose 2 gm (/ Premix) 50 mls @ 100 mls/hr IV ONETIME ONE Stop: 12/26/17 05:29 Bupivacaine HCl/Epinephrine Bitart (Sensorc Mpf 0.25%-Epi 1:[id number]) Confirm Administered Dose 30 mls @ as directed .ROUTE .STK-MED ONE Stop: 12/26/17 11:18 Ketorolac Tromethamine (Toradol) Confirm Administered Dose 30 mg .ROUTE .STK- MED ONE Stop: 12/26/17 11:14 Lidocaine (Xylocaine-Mpf 2%) Confirm Administered Dose 10 ml .ROUTE .STK-MED ONE Stop: 12/26/17 11:13 Midazolam HCl (Versed 1 Mg/Ml) Confirm Administered Dose 2 mg .ROUTE .STK-MED ONE Stop: 12/26/17 11:13 Ondansetron HCl (Zofran) Confirm Administered Dose 4 mg .ROUTE .STK-MED ONE Stop: 12/26/17 11:14 Propofol (Diprivan 20 Ml) Confirm Administered Dose 400 mg .ROUTE .STK-MED ONE Stop: 12/26/17 11:13 Rocuronium [place] (Zemuron) Confirm Administered Dose 100 mg .ROUTE .STK-MED ONE Stop: 12/26/17 11:14 Sugammadex Sodium (Bridion) Confirm Administered Dose 200 mg .ROUTE .STK-MED ONE Stop: 12/26/17 11:12
[2017-12-26] MEDS ORDERED: ePHEDrine 50 MG/ML SDV ONE (12:28)
[2017-12-26] MEDS ORDERED: Octyl 2-Cyanoacrylate 1 Tube ONE (13:08)
--- NOTE | 2017-12-26 13:34 | PCM.OPNOTE ---
- General Post-Op/Procedure Note Date of Surgery/Procedure: 12/26/17 Operative Procedure(s): lap doreen Findings: gb wall is not thickened, but yelloe and green cw chronic cholecystitis; [id number] Pre Op Diagnosis: chronic and acute cholecystitis Post-Op Diagnosis: Same Anesthesia Technique: General ET Tube Primary Surgeon: Paolo Sherwood Pathology: sent Complications: None Condition: Good
[2017-12-26] MEDS ORDERED: Acetaminophen/oxyCODONE 325-5 MG Tab PO PRN (13:35)
--- NOTE | 2017-12-26 13:53 | OR ---
SURGEON: Paolo Sherwood MD DATE OF PROCEDURE: 12/26/2017 PREOPERATIVE DIAGNOSIS: Chronic cholecystitis. POSTOPERATIVE DIAGNOSIS: Chronic cholecystitis. PROCEDURE PERFORMED: Laparoscopic cholecystectomy. COMPLICATIONS: None. FINDINGS: Gallbladder wall was not thickened, with gallstones. It was yellow and green consistent with chronic cholecystitis. PROCEDURE NOTE: The patient was taken to the operating room and placed in the supine position. After the intubation of general endotracheal anesthesia, the patient's abdomen was prepped and draped in the usual sterile fashion. Using Optiview, a 12 mm trocar was placed supraumbilically and then followed with pneumoperitoneum. A 5 mm trocar was placed in the epigastrium and two 5 mm trocars placed in the right upper quadrant. The placement of the last three trocars was done under direct video supervision. Upon gaining entrance to the abdominal cavity, an extensive examination was then performed. The gallbladder was located and identified and retracted to the dome of the liver at the triangle of Calot. The cystic duct was clipped three more times and then using the endoscopic clip, was transected with placement of the endoscopic clip and transection was performed with care, ensuring the posterior prong of the instruments were clearly visualized prior to exercising the procedure. The gallbladder was dissected using electrocautery out of the liver bed and then removed using endoscopic bag through the umbilical site. The gallbladder was removed en bloc and there was no bile spillage and this was then followed with extensive irrigation until the bile was clear from blood and bile. Piece of Surgicel was inserted for hemostasis. The trocars were then removed under direct video supervision. The 12 mm umbilical site was then closed with deep stitches using 0 Vicryl followed with proximal stitches using 3-0 Vicryl and Dermabond. The other three trocar sites were closed with 3-0 Vicryl followed with approximation of skin with Dermabond. The patient was then awakened and extubated and transferred to the recovery room in hemodynamically stable condition. At the conclusion of the surgery, before closing the abdominal wound, instrument count and sponge count were done and were correct. and a piece of surgicell was placed for hemostasis. The patient tolerated the procedure well and there were no intraoperative complications. Dr. Sherwood was present through the whole procedure. Just before surgery, a timeout was called. The patient was identified and procedure identified and procedure started. SHANEL BUNDY /[id number] RUTHIE
[2017-12-26] MEDS: fentaNYL 100 MCG/2 ML SDV IVPUSH PRN ×2 (14:05→14:31)
--- NOTE | 2017-12-26 15:34 | PCM.POSTAN ---
POST ANESTHESIA ASSESSMENT - MENTAL STATUS Mental Status: Alert, Oriented - RESPIRATORY Respiratory Status: Respiratory Rate WNL, Airway Patent, O2 Saturation Stable - CARDIOVASCULAR CV Status: Pulse Rate WNL, Blood Pressure Stable - GASTROINTESTINAL GI Status: No Symptoms - POST OP HYDRATION Hydration Status: Adequate & Stable
--- NOTE | 2017-12-26 15:35 | PCM48HPAN ---
Post Anesthesia Note - EVALUATION WITHIN 48HRS OF ANESTHETIC Vital Signs in Normal Range: Yes Patient Participated in Evaluation: Yes Respiratory Function Stable: Yes Airway Patent: Yes Cardiovascular Function Stable: Yes Hydration Status Stable: Yes Pain Control Satisfactory: Yes Nausea and Vomiting Control Satisfactory: Yes Mental Status Recovered: Yes Resp Rate: 12
[2017-12-26 17:04] VITALS: BP 106/66
== END 2017-12-26 16:45 | disposition home or self-care (01) ==
LOC: MW.SDS 10:23
PROVIDERS: ATTEND Surgery
DX: K80.10 Calculus of gallbladder with chronic cholecystitis without obstruction (principal); F17.210 Nicotine dependence, cigarettes, uncomplicated; E28.2 Polycystic ovarian syndrome; Z79.899 Other long term (current) drug therapy; Z88.5 Allergy status to narcotic agent
CPT/HCPCS: 81025; 88304; A9270-GY; J0690; J1100; J1885; J2250; J2405; J2704; J3010; J3490; J7120

== ENCOUNTER 2018-01-20 17:51 | Emergency (ER) | payer MEDICAID, OTHER ==
--- NOTE | 2018-01-20 18:05 | EDM.PDOC ---
ED HPI GENERAL MEDICAL PROBLEM - General Chief Complaint: Skin Complaint Stated Complaint: PT HAS INFECTION Time Seen by Provider: 01/20/18 18:01 Source of Information: Reports: Patient - History of Present Illness INITIAL COMMENTS - FREE TEXT/NARRATIVE: HISTORY AND PHYSICAL: History of present illness: []Patient presents postop with Dr. Lopez for cholecystectomy last week She is doing well outside of the epigastric incision has some redness surrounding it and a small area of exudate superficially similar to a pimple I am able to express one full drop of purulent exudate, which I did culture. This essentially drained the lesion it is red and tender redness is about the size of a quarter otherwise the incision remained intact, the other 3 incisions are clean dry intact no redness warmth or exudates for culture No fever nausea vomiting chills sweats Review of systems: As per history of present illness and below otherwise all systems reviewed and negative. Past medical history: As per history of present illness and as reviewed below otherwise noncontributory. Surgical history: As per history of present illness and as reviewed below otherwise noncontributory. Social history: No reported history of drug or alcohol abuse. Family history: As per history of present illness and as reviewed below otherwise noncontributory. Physical exam: HEENT: Atraumatic, normocephalic, pupils reactive, negative for conjunctival pallor or scleral icterus, mucous membranes moist, throat clear, neck supple, nontender, trachea midline. Lungs: Clear to auscultation, breath sounds equal bilaterally, chest nontender. Heart: S1S2, regular, negative for clicks, rubs, or JVD. Abdomen: Soft, nondistended, nontender. Negative for masses or hepatosplenomegaly. Negative for costovertebral tenderness. Pelvis: Stable nontender. Genitourinary: Deferred. Rectal: Deferred. Extremities: Atraumatic, negative for cords or calf pain. Neurovascular unremarkable. Neuro: Awake, alert, oriented. Cranial nerves II through XII unremarkable. Cerebellum unremarkable. Motor and sensory unremarkable throughout. Exam nonfocal. Skin as per history of present illness otherwise unremarkable Diagnostics: [Wound culture ] Therapeutics: [Bactrim No. 20 no refill Follow-up with Dr. Lopez as scheduled next week, return if symptoms persist or worsen despite treatment Impression: [Cellulitis Postop cholecystectomy] Definitive disposition and diagnosis as appropriate pending reevaluation and review of above. - Related Data Allergies Allergy/AdvReac Type Severity Reaction Status Date / Time codeine Allergy Unknown Nausea and Verified 12/23/17 09:14 Vomiting acetaminophen [From Vicodin] Allergy Nausea and Verified 12/23/17 09:14 Vomiting hydrocodone [From Vicodin] Allergy Nausea and Verified 12/23/17 09:14 Vomiting Home Meds: Home Meds Acetaminophen [Tylenol] 2 tab PO ASDIRECTED PRN 12/23/17 [History] Ondansetron HCl [Zofran] 4 mg PO ASDIRECTED PRN 12/23/17 [History] Past Medical History - Past Health History Medical/Surgical History: Denies Medical/Surgical History Gastrointestinal History: Reports: Cholelithiasis BRICK TENDER History: Reports: Polycystic Ovaries, , Spontaneous Musculoskeletal History: Reports: Fracture Other Musculoskeletal History: hx fx arm - Infectious Disease History Infectious Disease History: Reports: None - Past Surgical History Head Surgeries/Procedures: Reports: None Social & Family History - Family History Family Medical History: Noncontributory - Caffeine Use Caffeine Use: Reports: Coffee, Energy Drinks, Soda ED ROS GENERAL - Review of Systems Review Of Systems: See Below ED EXAM, SKIN/RASH Exam: See Below Departure - Departure Time of Disposition: 18:04 Disposition: Home, Self-Care 01 Condition: Good Clinical Impression: Cellulitis - Discharge Information Referrals: PCP,None [Primary Care Provider] - Additional Instructions: The following information is given to patients seen in the emergency department who are being discharged to home. This information is to outline your options for follow-up care. We provide all patients seen in our emergency department with a follow-up referral. The need for follow-up, as well as the timing and circumstances, are variable depending upon the specifics of your emergency department visit. If you don't have a primary care physician on staff, we will provide you with a referral. We always advise you to contact your personal physician following an emergency department visit to inform them of the circumstance of the visit and for follow-up with them and/or the need for any referrals to a consulting specialist. The emergency department will also refer you to a specialist when appropriate. This referral assures that you have the opportunity for follow-up care with a specialist. All of these measure are taken in an effort to provide you with optimal care, which includes your follow-up. Under all circumstances we always encourage you to contact your private physician who remains a resource for coordinating your care. When calling for follow-up care, please make the office aware that this follow-up is from your recent emergency room visit. If for any reason you are refused follow-up, please contact the [facility] emergency department at and asked to speak to the emergency department charge nurse.
[2018-01-20 18:15] VITALS: BP 135/76
== END 2018-01-20 18:30 | disposition home or self-care (01) ==
LOC: MW.ED 17:51
DX: L03.311 Cellulitis of abdominal wall (principal); Z88.5 Allergy status to narcotic agent; Z88.8 Allergy status to other drugs, medicaments and biological substances; Z79.899 Other long term (current) drug therapy
CPT/HCPCS: 87070; 87077; 87186; 99283

== ENCOUNTER 2020-08-22 23:50 | Emergency (ER) | payer MEDICAID ==
[2020-08-23] MEDS ORDERED: Sodium Chloride 0.9% 10 ML Syringe FLUSH PRN (00:38)
[2020-08-23] MEDS ORDERED: Ketorolac 15 MG/ML SDV IVPUSH ONE (00:38)
[2020-08-23] MEDS ORDERED: Ondansetron 4 MG/2 ML SDV IVPUSH ONE ×2 (00:38→02:11)
[2020-08-23] MEDS ORDERED: HYDROmorphone 1 MG/ML Syringe IVPUSH ONE (00:38)
[2020-08-23] MEDS ORDERED: Sodium Chloride 0.9% 1,000 ML IV ONE (00:38)
[2020-08-23] MEDS ORDERED: Sodium Chloride 0.9% 2.5 ML Syringe FLUSH PRN (00:38)
[2020-08-23 00:39] LABS: BLOOD UREA NITROGEN,BUN 20 mg/dL (7.0-18.0); CARBON DIOXIDE,CO2 25.7 mmol/L (21.0-32.0); CHLORIDE,CL 105 mmol/L (98-107); GLUCOSE RANDOM 116 mg/dL (74-106); POTASSIUM,K 4.2 mmol/L (3.5-5.1); SODIUM,NA 140 mmol/L (136-145)
[2020-08-23 01:00] LABS: LIPASE 118 U/L (73-393)
[2020-08-23] MEDS ORDERED: Iopamidol 755 MG/ML 500 ML Multipack Bottle IVPUSH STA (01:49)
--- NOTE | 2020-08-23 02:05 | CT ---
INDICATION: Abdominal pain TECHNIQUE: CT Abdomen and pelvis with i.v. contrast. Coronal and sagittal reformats were obtained. CONTRAST: 100 mL Isovue 370 COMPARISON: None FINDINGS: [id number] degradation of image quality is present due to the patient`s inability to maintain a breath hold. Lower chest: Unremarkable. Liver: Unremarkable. Spleen: Unremarkable. Pancreas: Unremarkable. Gallbladder: Previous cholecystectomy noted without significant intra- or extrahepatic biliary ductal dilatation seen. Kidney: Unremarkable. No kidney or ureteral stones or obstruction seen. Adrenal: Unremarkable. Bowel: Mild wall thickening of the gastric antrum is present. The small bowel is fluid-filled and near the upper limits of normal in size measuring 2.4 cm. The appendix is normal in appearance and size. Vascular: Unremarkable. Lymph: Unremarkable. Peritoneum: Unremarkable. No pneumoperitoneum is seen. No significant ascites is noted. Pelvis: Unremarkable. Soft tissue: Unremarkable. Bone: Unremarkable for age. IMPRESSIONS: 1. Mild wall thickening of the gastric antrum is present. This may be due to gastritis or peptic ulcer disease and confirmation with barium GI series or endoscopy is recommended. 2. The small bowel is fluid-filled and near the upper limits of normal in size measuring 2.4 cm. Clinical and imaging follow-up is recommended to exclude adynamic ileus or developing small bowel obstruction. Dictated by Mikey Roberts MD @ 08/23/2020 2:04:04 AM Please note that all CT scans at this facility use dose modulation, iterative reconstruction, and/or weight-based dosing when appropriate to reduce radiation dose to as low as reasonably achievable. Dictated by: Mikey Roberts MD @ 08/23/2020 02:04:08 (Electronically Signed)
[2020-08-23] MEDS ORDERED: Alum Hydrox/Mag Hydrox/Simeth 15 ML, Lidocaine 2% 5 ML PO ONE ×2 (02:08)
[2020-08-23] MEDS ORDERED: Pantoprazole 40 MG in Sodium Chloride 0.9% 10 ML IV ONE (02:08)
--- NOTE | 2020-08-23 02:19 | EDM.PDOC ---
ED HPI GENERAL MEDICAL PROBLEM - General Chief Complaint: Abdominal Pain Stated Complaint: ABDOMINAL PAIN Time Seen by Provider: 08/23/20 00:42 - History of Present Illness INITIAL COMMENTS - FREE TEXT/NARRATIVE: HISTORY AND PHYSICAL: History of present illness: This is a 30-year-old female who presents ER today complaining of midepigastric abdominal pain that started approximately 4 PM today and has been progressively worsening throughout the evening. Patient reports that her last p.o. intake was a stuffed crust pizza at work today. She reports that she was feeling fine earlier this afternoon without any abdominal discomfort. Patient presents ER today secondary to midepigastric pain with nausea. Patient denies any melena or bright red blood per rectum today. Patient reports that she is passing flatus and last time she passed any gas was prior to arrival. Patient reports no bowel movement today. Patient denies any recent fevers, shakes, chills. Patient has any dysuria, frequency, urgency. Patient denies any vomiting or diarrhea but she feels extremely nauseous. Patient reports that the pain is greatest in the midepigastric area with no pain rating to her right or left lower quadrants. Patient denies any vaginal discharge. Review of systems: As per history of present illness and below otherwise all systems reviewed and negative. Past medical history: As per history of present illness and as reviewed below otherwise noncontributory. Surgical history: As per history of present illness and as reviewed below otherwise noncontributory. Social history: No reported history of drug or alcohol abuse. Family history: As per history of present illness and as reviewed below otherwise noncontributory. Physical exam: This patient was seen and evaluated during the 2019 SARS-CoV-2 novel coronavirus pandemic period. Community viral transmission is ongoing at time of this encounter and the emergency department is operating under pandemic response procedures. Constitutional: Patient is oriented to person, place, and time. Appears well- developed and well-nourished. No distress. HEENT: Moist mucous membranes Head: Normocephalic and atraumatic Eyes: Right eye exhibits no discharge. Left eye exhibits no discharge. No scleral icterus Neck: Normal range of motion. No tracheal deviation present. Cardiovascular: Normal rate and regular rhythm. Pulmonary: Effort normal, no respiratory distress. Abd: Soft, nondistended, no rebound/guarding, no psoas or obturator signs, no tenderness at Mcberney's point, no Esqueda's sign. Pt does not present with an exam that would be consistent with an acute surgical abdomen at this time, tenderness to palpation midepigastric region and left upper quadrant. Rectal exam: Brown heme-negative stool. No hemorrhoids internally or externally identified. Musculoskeletal: Normal range of motion Neurologic: Alert and oriented to person, place and time. Skin: [place], warm and dry. Psychiatric: Normal mood and affect. Behavior is normal. Judgment and thought content normal. Nursing note and vital signs have been reviewed Diagnostics: CT of the abdomen pelvis reveals mild wall thickening of the gastric antrum. This may be due to gastritis or peptic ulcer disease and confirmation with barium GI series or endoscopy is recommended. The small bowel is fluid-filled and near the upper limits of normal in size measuring from 2.4 cm. Clinical and imaging follow-up is recommended to exclude adynamic ileus or developing small bowel obstruction. CBC, CMP within normal limits. Urinalysis within normal limits. Urine test negative. D-dimer and alcohol level negative Assessment and plan Patient given hydromorphone, ketorolac and Zofran here in the ED with significant improvement in her pain and discomfort. Given patient's CT report, I have discussed with the patient the need to avoid NSAIDs in the near future. Patient has also been informed that she will need to follow-up with her doctor for outpatient evaluation and GI evaluation. This is a 30-year-old female who presents to the ER today secondary to severe midepigastric abdominal pain that started earlier today and has been progressively worsening. Patient was given adequate analgesia here in the ED with significant improvement. Patient reports that she did move her bowels yesterday and usually moves them every other day so this is not atypical for her. Patient reports that she has been passing a normal amount of flatus today. Patient's rectal exam is brown heme-negative stool. Patient CT scan reveals possible peptic ulcer disease. Patient will be given a GI cocktail will be started on a proton pump inhibitor. Patient has been given adequate antiemetic medication she feels much improved. I have discussed all the above results with the patient and her significant other and the need to follow-up with her primary care physician for further outpatient evaluation. Patient will be given a an Rx for Zofran and Prilosec. Reassessment at the time of disposition demonstrates that the patient is in no acute distress. The patient has remained stable throughout the entire ED visit and is without objective evidence for acute process requiring urgent intervention or hospitalization. The patient is stable for discharge, counseling is provided as documented above, discussed symptomatic treatment and specific conditions for return. I have spoken with the patient/caregiver and discussed todays findings, in addition to providing specific details for the plan of care. Questions are answered and there is agreement with the plan. Definitive disposition and diagnosis as appropriate pending reevaluation and review of above. Abdomen Pain Score (Numeric/FACES): 10 - Related Data Allergies Allergy/AdvReac Type Severity Reaction Status Date / Time codeine Allergy Unknown Nausea and Verified 08/23/20 00:10 Vomiting acetaminophen [From Vicodin] Allergy Nausea and Verified 08/23/20 00:10 Vomiting hydrocodone [From Vicodin] Allergy Nausea and Verified 08/23/20 00:10 Vomiting Home Meds: Home Meds Omeprazole Magnesium [Prilosec Otc] 20 mg PO BID #30 tablet.dr 08/23/20 [Rx] Ondansetron [Zofran ODT] 4 mg PO Q6H PRN #12 tab.dis 08/23/20 [Rx] Past Medical History - Past Health History Medical/Surgical History: Denies Medical/Surgical History HEENT History: Reports: None Cardiovascular History: Reports: None Respiratory History: Reports: None Gastrointestinal History: Reports: Cholelithiasis Genitourinary History: Reports: None CORSET FITTER History: Reports: Polycystic Ovaries, , Spontaneous Musculoskeletal History: Reports: Fracture Other Musculoskeletal History: hx fx arm Neurological History: Reports: None Psychiatric History: Reports: None Endocrine/Metabolic History: Reports: None Insulin Pump Model and Traffic Maintenance Supervisor: None Hematologic History: Reports: None Immunologic History: Reports: None Oncologic (Cancer) History: Reports: None Dermatologic History: Reports: None - Infectious Disease History Infectious Disease History: Reports: None - Past Surgical History Head Surgeries/Procedures: Reports: None GI Surgical History: Reports: Cholecystectomy Social & Family History - Family History Family Medical History: No Pertinent Family History - Caffeine Use Caffeine Use: Reports: Coffee, Energy Drinks, Soda - Recreational Drug Use Recreational Drug Use: No ED ROS GENERAL - Review of Systems Review Of Systems: See Below ED EXAM, GENERAL - Physical Exam Exam: See Below Course - Vital Signs Last Recorded V/S: Last Vital Signs Temp 97 F 08/23/20 00:00 Pulse 102 H 08/23/20 00:00 Resp 18 08/23/20 00:00 BP 110/68 08/23/20 00:00 Pulse Ox 97 08/23/20 00:00 - Orders/Labs/Meds Orders: Active Orders 24 hr Category Date Time Status Ondansetron [Zofran] Med 08/23/20 02:11 Once 4 mg IVPUSH ONETIME ONE Sodium Chloride 0.9% [Saline Flush] Med 08/23/20 00:38 Active 10 ml FLUSH ASDIRECTED PRN Sodium Chloride 0.9% [Saline Flush] Med 08/23/20 00:38 Active 2.5 ml FLUSH ASDIRECTED PRN Saline Lock Insert [OM.PC] Stat Oth 08/23/20 00:39 Ordered Medication Orders Sodium Chloride (Sodium Chloride 0.9% 10 Ml Syringe) 10 ml FLUSH ASDIRECTED PRN PRN Reason: Keep Vein Open Sodium Chloride (Sodium Chloride 0.9% 2.5 Ml Syringe) 2.5 ml FLUSH ASDIRECTED PRN PRN Reason: Keep Vein Open Labs: Laboratory Tests 08/23/20 08/23/20 08/23/20 Range/Units 00:05 00:05 00:05 WBC 8.21 (4.0-11.0) K/uL RBC 4.61 (4.30-5.90) M/uL Hgb 14.6 (12.0-16.0) g/dL Hct 42.1 (36.0-46.0) % MCV 91.3 (80.0-98.0) fL MCH 31.7 (27.0-32.0) pg MCHC 34.7 (31.0-37.0) g/dL RDW Std Deviation 41.0 (28.0-62.0) fl RDW Coeff of Alvino 12 (11.0-15.0) % Plt Count 208 (150-400) K/uL MPV 9.80 (7.40-12.00) fL Neut % (Auto) 83.0 H (48.0-80.0) % Lymph % (Auto) 10.4 L (16.0-40.0) % [place] % (Auto) 5.6 (0.0-15.0) % Eos % (Auto) 0.9 (0.0-7.0) % Baso % (Auto) 0.1 (0.0-1.5) % Neut # (Auto) 6.8 H (1.4-5.7) K/uL Lymph # (Auto) 0.9 (0.6-2.4) K/uL [place] # (Auto) 0.5 (0.0-0.8) K/uL Eos # (Auto) 0.1 (0.0-0.7) K/uL Baso # (Auto) 0.0 (0.0-0.1) K/uL Nucleated RBC % 0.0 /100WBC Nucleated RBCs # 0 K/uL D-Dimer, Quantitative 0.45 (0.0-0.50) mg/L FEU Sodium 140 (136-145) mmol/L Potassium 4.2 (3.5-5.1) mmol/L Chloride 105 (98-107) mmol/L Carbon Dioxide 25.7 (21.0-32.0) mmol/L BUN 20 H (7.0-18.0) mg/dL Creatinine 0.7 (0.6-1.0) mg/dL Est Cr Clr Drug Dosing TNP Estimated GFR (MDRD) > 60.0 ml/min Glucose 116 H (74-106) mg/dL Calcium 9.3 (8.5-10.1) mg/dL Total Bilirubin 0.8 (0.2-1.0) mg/dL AST 64 H (15-37) IU/L ALT 39 (14-63) IU/L Alkaline Phosphatase 41 L (46-116) U/L Troponin I (0.000-0.056) ng/mL Total Protein 7.6 (6.4-8.2) g/dL Albumin 4.0 (3.4-5.0) g/dL Globulin 3.6 (2.6-4.0) g/dL Albumin/Globulin Ratio 1.1 (0.9-1.6) Lipase (73-393) U/L Urine Color Urine Appearance Urine pH (5.0-8.0) Ur Specific [place] (1.001-1.035) Urine Protein (NEGATIVE) mg/dL Urine Glucose (UA) (NEGATIVE) mg/dL Urine Ketones (NEGATIVE) mg/dL Urine Occult Blood (NEGATIVE) Urine Nitrite (NEGATIVE) Urine Bilirubin (NEGATIVE) Urine Urobilinogen (<2.0) EU/dL Ur Leukocyte Esterase (NEGATIVE) Urine RBC (0-2/HPF) Urine WBC (0-5/HPF) Ur Epithelial Cells (NONE-FEW) Urine Bacteria (NEGATIVE) Urine HCG, Qual (NEGATIVE) Ethyl Alcohol mg/dL 08/23/20 08/23/20 08/23/20 Range/Units 00:05 00:25 00:25 WBC (4.0-11.0) K/uL RBC (4.30-5.90) M/uL Hgb (12.0-16.0) g/dL Hct (36.0-46.0) % MCV (80.0-98.0) fL MCH (27.0-32.0) pg MCHC (31.0-37.0) g/dL RDW Std Deviation (28.0-62.0) fl RDW Coeff of Alvino (11.0-15.0) % Plt Count (150-400) K/uL MPV (7.40-12.00) fL Neut % (Auto) (48.0-80.0) % Lymph % (Auto) (16.0-40.0) % [place] % (Auto) (0.0-15.0) % Eos % (Auto) (0.0-7.0) % Baso % (Auto) (0.0-1.5) % Neut # (Auto) (1.4-5.7) K/uL Lymph # (Auto) (0.6-2.4) K/uL [place] # (Auto) (0.0-0.8) K/uL Eos # (Auto) (0.0-0.7) K/uL Baso # (Auto) (0.0-0.1) K/uL Nucleated RBC % /100WBC Nucleated RBCs # K/uL D-Dimer, Quantitative (0.0-0.50) mg/L FEU Sodium (136-145) mmol/L Potassium (3.5-5.1) mmol/L Chloride (98-107) mmol/L Carbon Dioxide (21.0-32.0) mmol/L BUN (7.0-18.0) mg/dL Creatinine (0.6-1.0) mg/dL Est Cr Clr Drug Dosing Estimated GFR (MDRD) ml/min Glucose (74-106) mg/dL Calcium (8.5-10.1) mg/dL Total Bilirubin (0.2-1.0) mg/dL AST (15-37) IU/L ALT (14-63) IU/L Alkaline Phosphatase (46-116) U/L Troponin I < 0.050 (0.000-0.056) ng/mL Total Protein (6.4-8.2) g/dL Albumin (3.4-5.0) g/dL Globulin (2.6-4.0) g/dL Albumin/Globulin Ratio (0.9-1.6) Lipase 118 (73-393) U/L Urine Color YELLOW Urine Appearance CLEAR Urine pH 8.0 (5.0-8.0) Ur Specific [place] 1.020 (1.001-1.035) Urine Protein NEGATIVE (NEGATIVE) mg/dL Urine Glucose (UA) NEGATIVE (NEGATIVE) mg/dL Urine Ketones NEGATIVE (NEGATIVE) mg/dL Urine Occult Blood NEGATIVE (NEGATIVE) Urine Nitrite NEGATIVE (NEGATIVE) Urine Bilirubin NEGATIVE (NEGATIVE) Urine Urobilinogen 0.2 (<2.0) EU/dL Ur Leukocyte Esterase NEGATIVE (NEGATIVE) Urine RBC 0-2 (0-2/HPF) Urine WBC 0-1 (0-5/HPF) Ur Epithelial Cells FEW (NONE-FEW) Urine Bacteria RARE (NEGATIVE) Urine HCG, Qual NEGATIVE (NEGATIVE) Ethyl Alcohol < 3.0 mg/dL Meds: Medications Generic Name Dose Route Start Last Admin Trade Name Freq PRN Reason Stop Dose Admin Sodium Chloride 10 ml 08/23/20 00:38 Sodium Chloride 0.9% 10 Ml Syringe FLUSH ASDIRECTED PRN Keep Vein Open Sodium Chloride 2.5 ml 08/23/20 00:38 Sodium Chloride 0.9% 2.5 Ml Syringe FLUSH ASDIRECTED PRN Keep Vein Open Discontinued Medications Generic Name Dose Route Start Last Admin Trade Name Freq PRN Reason Stop Dose Admin Al Hydroxide/Mg Hydroxide 15 0 ml 08/23/20 02:08 ml/ Lidocaine HCl 5 ml PO 08/23/20 02:09 ONETIME ONE Hydromorphone HCl 0.5 mg 08/23/20 00:38 08/23/20 00:50 Hydromorphone 1 Mg/Ml Syringe IVPUSH 08/23/20 00:39 0.5 mg ONETIME ONE Administration Sodium Chloride 1,000 mls @ 999 mls/hr 08/23/20 00:38 08/23/20 00:49 Normal Saline IV 08/23/20 01:38 999 mls/hr .Bolus ONE Administration Pantoprazole Sodium 40 mg/ 10 mls @ 300 mls/hr 08/23/20 02:08 Sodium Chloride IV 08/23/20 02:09 NOW ONE Iopamidol 100 ml 08/23/20 01:49 08/23/20 01:49 Iopamidol 755 Mg/Ml 500 Ml Multipack Bottle IVPUSH 08/23/20 01:50 100 ml ONETIME STA Administration Ketorolac Tromethamine 15 mg 08/23/20 00:38 08/23/20 00:50 Ketorolac 15 Mg/Ml Sdv IVPUSH 08/23/20 00:39 15 mg ONETIME ONE Administration Ondansetron HCl 4 mg 08/23/20 00:38 08/23/20 00:50 Ondansetron 4 Mg/2 Ml Sdv IVPUSH 08/23/20 00:39 4 mg ONETIME ONE Administration Departure - Departure Time of Disposition: 02:23 Disposition: Home, Self-Care 01 Condition: Good Clinical Impression: Peptic ulcer disease, Gastritis, Abdominal pain - Discharge Information Instructions: Peptic Ulcer, [id number], Gastritis, Adult, [id number], Abdominal Pain, Adult, [id number] Referrals: PCP,None [Primary Care Provider] - Forms: ED Department Discharge Additional Instructions: You were seen and evaluated in the ER today secondary to midepigastric abdominal pain. The pain appears to be likely secondary to an early ulcer. You will be started on a proton pump inhibitor here in the ER as well as nausea medication. You have been given a dose through the IV and will be sent home with Prilosec 20 mg twice a day until reevaluated by your doctor. Please make sure you see if family doctor in the next 2 to 3 days for reevaluation. Also of concern on the CT scan was concern of a possible early bowel obstruction versus inflammation of your intestine. Please make sure that you are continuing to move your bowels as often as you normally do. If you start experiencing increasing pain, vomiting, or any other new or concerning symptoms, please return to the ER for reevaluation to make sure that this was not indeed an early obstruction that we are seeing. The following information is given to patients seen in the emergency department who are being discharged to home. This information is to outline your options for follow-up care. We provide all patients seen in our emergency department with a follow-up referral. The need for follow-up, as well as the timing and circumstances, are variable depending upon the specifics of your emergency department visit. If you don't have a primary care physician on staff, we will provide you with a referral. We always advise you to contact your personal physician following an emergency department visit to inform them of the circumstance of the visit and for follow-up with them and/or the need for any referrals to a consulting specialist. The emergency department will also refer you to a specialist when appropriate. This referral assures that you have the opportunity for follow-up care with a specialist. All of these measure are taken in an effort to provide you with optimal care, which includes your follow-up. Under all circumstances we always encourage you to contact your private physician who remains a resource for coordinating your care. When calling for follow-up care, please make the office aware that this follow-up is from your recent emergency room visit. If for any reason you are refused follow-up, please contact the [facility] Emergency Department at and asked to speak to the emergency department charge nurse. [facility] - Primary Care [address] [place] [id number] [id number] Sepsis Event Note (ED) - Evaluation Sepsis Screening Result: No Definite Risk - Focused Exam Vital Signs: Vital Signs Temp Pulse Resp BP Pulse Ox 08/23/20 00:00 97 F 102 H 18 110/68 97 - My Orders Last 24 Hours: My Active Orders 08/23/20 00:38 Sodium Chloride 0.9% [Saline Flush] 10 ml FLUSH ASDIRECTED PRN Sodium Chloride 0.9% [Saline Flush] 2.5 ml FLUSH ASDIRECTED PRN 08/23/20 00:39 Saline Lock Insert [OM.PC] Stat 08/23/20 02:11 Ondansetron [Zofran] 4 mg IVPUSH ONETIME ONE - Assessment/Plan Last 24 Hours: My Active Orders 08/23/20 00:38 Sodium Chloride 0.9% [Saline Flush] 10 ml FLUSH ASDIRECTED PRN Sodium Chloride 0.9% [Saline Flush] 2.5 ml FLUSH ASDIRECTED PRN 08/23/20 00:39 Saline Lock Insert [OM.PC] Stat 08/23/20 02:11 Ondansetron [Zofran] 4 mg IVPUSH ONETIME ONE
[2020-08-23 03:00] VITALS: BP 103/67; PULSE 87
== END 2020-08-23 02:45 | disposition home or self-care (01) ==
LOC: MW.ED 23:50
DX: K29.70 Gastritis, unspecified, without bleeding (principal); K21.9 Gastro-esophageal reflux disease without esophagitis; Z88.6 Allergy status to analgesic agent; Z88.5 Allergy status to narcotic agent; Z79.899 Other long term (current) drug therapy
CPT/HCPCS: 36415; 74177; 80053; 80307; 81001; 81025; 83690; 84484; 85025; 85379; 96374; 96375; 96376; 99284; A9270; C9113; J1170; J1885; J2405; J7030; Q9967

== ENCOUNTER 2020-08-23 22:59 | Emergency (ER) | payer MEDICAID ==
[2020-08-23] MEDS ORDERED: Sodium Chloride 0.9% 10 ML Syringe FLUSH PRN (23:29)
[2020-08-23] MEDS ORDERED: Sodium Chloride 0.9% 2.5 ML Syringe FLUSH PRN (23:29)
[2020-08-23] MEDS ORDERED: Sodium Chloride 0.9% 1,000 ML IV ONE (23:30)
[2020-08-23] MEDS ORDERED: Ondansetron 4 MG/2 ML SDV IVPUSH ONE (23:31)
[2020-08-23] MEDS ORDERED: fentaNYL 50 MCG/ML SDV IVPUSH ONE (23:58)
[2020-08-24 00:03] LABS: BLOOD UREA NITROGEN,BUN 10 mg/dL (7.0-18.0); CARBON DIOXIDE,CO2 23.4 mmol/L (21.0-32.0); CHLORIDE,CL 106 mmol/L (98-107); GLUCOSE RANDOM 105 mg/dL (74-106); LIPASE 270 U/L (73-393); POTASSIUM,K 4.2 mmol/L (3.5-5.1); SODIUM,NA 138 mmol/L (136-145)
--- NOTE | 2020-08-24 01:36 | EDM.PDOC ---
ED HPI GENERAL MEDICAL PROBLEM - General Chief Complaint: Abdominal Pain Stated Complaint: LOWER ABDOMINAL PAIN Time Seen by Provider: 08/23/20 23:31 - History of Present Illness INITIAL COMMENTS - FREE TEXT/NARRATIVE: History of present illness: [] The patient has severe constipation. She feels like there is a ball of stool ready to come out of her anus. The pain is at the anus. As she strains it becomes worse. She has not had a BM for more than 2 days. She is vomiting now. She had a CT yesterday and it looks like a possible early bowel obstruction. Has a history of hep C but was treated. Review of systems: As per history of present illness and below otherwise all systems reviewed and negative. Past medical history: As per history of present illness and as reviewed below otherwise noncontributory. Surgical history: As per history of present illness and as reviewed below otherwise noncontributory. Social history: No reported history of drug or alcohol abuse. Family history: As per history of present illness and as reviewed below otherwise noncontributory. Physical exam: Constitutional - well developed, well-nourished and in no acute distress HEENT - normocephalic, no evidence of trauma - external nose and mouth normal - no mass in neck and no JVD - mucosae moist EYES - full EOM, PERRL, no icterus - no evidence of inflammation, injection, or drainage Respiratory - no respiratory distress, equal bilateral expansion, lungs clear to auscultation and no abnormal lung sounds Cardiovascular - Regular Rhythm with S1 and S2 appreciated and no murmur, gallop or rub. GI - abdomen tender diffusely in soft without distension or organomegaly - normal bowel sounds - no guard or rebound. Occult exam reveals a hard group of lumps of stool. I am unable to break them up but able to insert a finger and th inks he could receive an enema being. Musculoskeletal no gross deformity of long bones or joints - no tenderness, swelling or edema Neurologic - Alert and oriented times four - CN II-XII grossly intact - motor sensory and coordination symmetrically normal Psychiatric - appropriate mood and affect with normal thought content Hematologic - No petechiae or purpura - mucosa appropriate color and sclera not pale - normal nail bed color and refill Integument - no rash or evidence of trauma - normal turgor Diagnostics: [] Therapeutics: [] Impression: [] Plan: [] Definitive disposition and diagnosis as appropriate pending reevaluation and review of above. Abdomen Pain Score (Numeric/FACES): 10 - Related Data Allergies Allergy/AdvReac Type Severity Reaction Status Date / Time codeine Allergy Unknown Nausea and Verified 08/23/20 23:04 Vomiting acetaminophen [From Vicodin] Allergy Nausea and Verified 08/23/20 23:04 Vomiting hydrocodone [From Vicodin] Allergy Nausea and Verified 08/23/20 23:04 Vomiting Home Meds: Home Meds Omeprazole Magnesium [Prilosec Otc] 20 mg PO BID #30 tablet. 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: Reports: Polycystic Ovaries, , Spontaneous Musculoskeletal History: Reports: Fracture Other Musculoskeletal History: hx fx arm Neurological History: Reports: None Psychiatric History: Reports: None Endocrine/Metabolic History: Reports: None Insulin Pump Model and Termite Inspector: None Hematologic History: Reports: None Immunologic History: Reports: None Oncologic (Cancer) History: Reports: None Dermatologic History: Reports: None - Infectious Disease History Infectious Disease History: Reports: None - Past Surgical History Head Surgeries/Procedures: Reports: None GI Surgical History: Reports: Cholecystectomy Social & Family History - Family History Family Medical History: No Pertinent Family History - Caffeine Use Caffeine Use: Reports: None - Recreational Drug Use Recreational Drug Use: No ED ROS GENERAL - Review of Systems Review Of Systems: Comprehensive ROS is negative, except as noted in HPI. ED EXAM, GENERAL - Physical Exam Exam: See Below Free Text/Narrative:: My physical exam is in the HPI Course - Vital Signs Text/Narrative:: Responded well to the enema. She is comfortable in her abdomen soft. Patient was informed of her transaminase level elevations and asked to tell her doctor today. She has an appointment this afternoon. Last Recorded V/S: Last Vital Signs Temp 90 C H 08/23/20 23:00 Pulse 90 08/23/20 23:00 Resp 18 08/23/20 23:00 BP 107/63 08/23/20 23:00 Pulse Ox 97 08/23/20 23:00 - Orders/Labs/Meds Orders: Active Orders 24 hr Category Date Time Status Enema [RC] ASDIRECTED Care 08/23/20 23:59 Active UA W/PAULO RFLX IF INDICATED [URIN] Stat Lab 08/23/20 23:29 Ordered Sodium Chloride 0.9% [Saline Flush] Med 08/23/20 23:29 Active 10 ml FLUSH ASDIRECTED PRN Sodium Chloride 0.9% [Saline Flush] Med 08/23/20 23:29 Active 2.5 ml FLUSH ASDIRECTED PRN Saline Lock Insert [OM.PC] Stat Oth 08/23/20 23:29 Ordered Medication Orders Sodium Chloride (Sodium Chloride 0.9% 10 Ml Syringe) 10 ml FLUSH ASDIRECTED PRN PRN Reason: Keep Vein Open Sodium Chloride (Sodium Chloride 0.9% 2.5 Ml Syringe) 2.5 ml FLUSH ASDIRECTED PRN PRN Reason: Keep Vein Open Labs: Laboratory Tests 08/23/20 08/23/20 Range/Units 23:30 23:30 WBC 3.69 L (4.0-11.0) K/uL RBC 4.16 L (4.30-5.90) M/uL Hgb 13.2 (12.0-16.0) g/dL Hct 38.1 (36.0-46.0) % MCV 91.6 (80.0-98.0) fL MCH 31.7 (27.0-32.0) pg MCHC 34.6 (31.0-37.0) g/dL RDW Std Deviation 41.8 (28.0-62.0) fl RDW Coeff of Alvino 12 (11.0-15.0) % Plt Count 157 (150-400) K/uL MPV 9.80 (7.40-12.00) fL Neut % (Auto) 72.9 (48.0-80.0) % Lymph % (Auto) 15.7 L (16.0-40.0) % Pettis % (Auto) 10.6 (0.0-15.0) % Eos % (Auto) 0.5 (0.0-7.0) % Baso % (Auto) 0.3 (0.0-1.5) % Neut # (Auto) 2.7 (1.4-5.7) K/uL Lymph # (Auto) 0.6 (0.6-2.4) K/uL Pettis # (Auto) 0.4 (0.0-0.8) K/uL Eos # (Auto) 0.0 (0.0-0.7) K/uL Baso # (Auto) 0.0 (0.0-0.1) K/uL Nucleated RBC % 0.0 /100WBC Nucleated RBCs # 0 K/uL Sodium 138 (136-145) mmol/L Potassium 4.2 (3.5-5.1) mmol/L Chloride 106 (98-107) mmol/L Carbon Dioxide 23.4 (21.0-32.0) mmol/L BUN 10 (7.0-18.0) mg/dL Creatinine 0.6 (0.6-1.0) mg/dL Est Cr Clr Drug Dosing 129.51 mL/min Estimated GFR (MDRD) > 60.0 ml/min Glucose 105 (74-106) mg/dL Calcium 8.1 L (8.5-10.1) mg/dL Total Bilirubin 0.7 (0.2-1.0) mg/dL AST 411 H (15-37) IU/L ALT 617 H (14-63) IU/L Alkaline Phosphatase 94 (46-116) U/L Total Protein 6.3 L (6.4-8.2) g/dL Albumin 3.2 L (3.4-5.0) g/dL Globulin 3.1 (2.6-4.0) g/dL Albumin/Globulin Ratio 1.0 (0.9-1.6) Lipase 270 (73-393) U/L Meds: Medications Generic Name Dose Route Start Last Admin Trade Name Freq PRN Reason Stop Dose Admin Sodium Chloride 10 ml 08/23/20 23:29 Sodium Chloride 0.9% 10 Ml Syringe FLUSH ASDIRECTED PRN Keep Vein Open Sodium Chloride 2.5 ml 08/23/20 23:29 Sodium Chloride 0.9% 2.5 Ml Syringe FLUSH ASDIRECTED PRN Keep Vein Open Discontinued Medications Generic Name Dose Route Start Last Admin Trade Name Freq PRN Reason Stop Dose Admin Fentanyl 50 mcg 08/23/20 23:58 08/24/20 00:05 Fentanyl 50 Mcg/Ml Sdv IVPUSH 08/23/20 23:59 50 mcg ONETIME ONE Administration Sodium Chloride 1,000 mls @ 1,000 mls/hr 08/23/20 23:30 08/23/20 23:42 Normal Saline IV 08/24/20 00:29 1,000 mls/hr .Bolus ONE Administration Ondansetron HCl 4 mg 08/23/20 23:31 08/23/20 23:42 Ondansetron 4 Mg/2 Ml Sdv IVPUSH 08/23/20 23:32 4 mg ONETIME ONE Administration Departure - Departure Time of Disposition: 01:34 Disposition: Home, Self-Care 01 Condition: Good Clinical Impression: Fecal impaction in rectum, Abdominal pain, High transaminase levels - Discharge Information Referrals: PCP,None [Primary Care Provider] - Additional Instructions: Have your clinic doctor reviewed the transaminase elevation. Use magnesium citrate to clean out the rest of your colon. [facility] - Primary Care [address] [place] [address] [place] [address] The following information is given to patients seen in the emergency department who are being discharged to home. This information is to outline your options for follow-up care. We provide all patients seen in our emergency department with a follow-up referral. The need for follow-up, as well as the timing and circumstances, are variable depending upon the specifics of your emergency department visit. If you don't have a primary care physician on staff, we will provide you with a referral. We always advise you to contact your personal physician following an emergency department visit to inform them of the circumstance of the visit and for follow-up with them and/or the need for any referrals to a consulting specialist. The emergency department will also refer you to a specialist when appropriate. This referral assures that you have the opportunity for follow-up care with a specialist. All of these measure are taken in an effort to provide you with optimal care, which includes your follow-up. Under all circumstances we always encourage you to contact your private physician who remains a resource for coordinating your care. When calling for follow-up care, please make the office aware that this follow-up is from your recent emergency room visit. If for any reason you are refused follow-up, please contact the [facility] Emergency Department at and asked to speak to the emergency department charge nurse. Sepsis Event Note (ED) - Evaluation Sepsis Screening Result: No Definite Risk - Focused Exam Vital Signs: Vital Signs Temp Pulse Resp BP Pulse Ox 08/23/20 23:00 90 C H 90 18 107/63 97 - My Orders Last 24 Hours: My Active Orders 08/23/20 23:29 UA W/PAULO RFLX IF INDICATED [URIN] Stat Sodium Chloride 0.9% [Saline Flush] 10 ml FLUSH ASDIRECTED PRN Sodium Chloride 0.9% [Saline Flush] 2.5 ml FLUSH ASDIRECTED PRN Saline Lock Insert [OM.PC] Stat 08/23/20 23:59 Enema [RC] ASDIRECTED - Assessment/Plan Last 24 Hours: My Active Orders 08/23/20 23:29 UA W/PAULO RFLX IF INDICATED [URIN] Stat Sodium Chloride 0.9% [Saline Flush] 10 ml FLUSH ASDIRECTED PRN Sodium Chloride 0.9% [Saline Flush] 2.5 ml FLUSH ASDIRECTED PRN Saline Lock Insert [OM.PC] Stat 08/23/20 23:59 Enema [RC] ASDIRECTED
[2020-08-24 01:45] VITALS: BP 101/54; PULSE 76
== END 2020-08-24 01:45 | disposition home or self-care (01) ==
LOC: MW.ED 22:59
DX: K56.41 Fecal impaction (principal); R74.01 Elevation of levels of liver transaminase levels; Z90.49 Acquired absence of other specified parts of digestive tract; Z79.899 Other long term (current) drug therapy; Z88.5 Allergy status to narcotic agent; Z88.8 Allergy status to other drugs, medicaments and biological substances
CPT/HCPCS: 36415; 80053; 83690; 85025; 96374; 96375; 99283; J2405; J3010; J7030; 99284

== ENCOUNTER 2021-12-01 03:00 | Inpatient (IN) | payer MEDICAID ==
[2021-12-01] MEDS ORDERED: Methylergonovine 0.2 MG/1 ML Amp IM PRN (03:22)
[2021-12-01] MEDS ORDERED: Lidocaine 1% 50 ML MDV INJECT PRN (03:22)
[2021-12-01] MEDS ORDERED: Butorphanol 1 MG/ML SDV IVPUSH PRN (03:22)
[2021-12-01] MEDS ORDERED: Misoprostol 200 MCG Tab PO PRN (03:22)
[2021-12-01] MEDS ORDERED: Sodium Chloride 0.9% 20 ML SDV IV PRN (03:22)
[2021-12-01] MEDS ORDERED: Carboprost Tromethamine 250 MCG/1 ML Amp IM PRN (03:22)
[2021-12-01] MEDS ORDERED: Sodium Chloride 0.9% 10 ML Syringe FLUSH PRN (03:22)
[2021-12-01] MEDS ORDERED: Sodium Chloride 0.9% 2.5 ML Syringe FLUSH PRN (03:22)
[2021-12-01] MEDS ORDERED: Tranexamic Acid 1,000 MG in Sodium Chloride 0.9% 100 ML IV PRN (03:22)
[2021-12-01] MEDS ORDERED: Water For Irrigation,Sterile 1,000 ML Container IRR PRN (03:22)
[2021-12-01] MEDS ORDERED: Ondansetron 4 MG/2 ML SDV IVPUSH PRN (03:22)
[2021-12-01] MEDS ORDERED: Oxytocin/0.9 % Sodium Chloride 30 UNIT/500 ML BAG IV SCH ×2 (03:30→13:00)
[2021-12-01] MEDS ORDERED: Ampicillin 2 GM in Sodium Chloride 0.9% 100 ML IV ONE (04:00)
[2021-12-01] MEDS: Lactated Ringers 1,000 ML IV SCH ×2 (04:45→09:19)
[2021-12-01] MEDS ORDERED: Ropivacaine HCl/PF 400 MG in Premix Bag 1 BAG IV ONE (04:50)
[2021-12-01] MEDS ORDERED: Phenylephrine HCl In 0.9% NaCl 1 MG/10 ML Vial ONE (04:50)
[2021-12-01] MEDS ORDERED: ePHEDrine 50 MG/ML SDV IVPUSH PRN ×2 (04:59)
[2021-12-01] MEDS ORDERED: Phenylephrine HCl In 0.9% NaCl 1 MG/10 ML Vial IVPUSH SCH (05:00)
[2021-12-01] MEDS ORDERED: Ropivacaine HCl/PF 400 MG in Premix Bag 1 BAG EPIDUR SCH (05:00)
[2021-12-01] MEDS ORDERED: Ampicillin 1 GM in Sodium Chloride 0.9% 50 ML IV SCH (09:00)
[2021-12-01] MEDS ORDERED: Misoprostol 25 MCG (1/4 of 100 MCG) Tab VAG PRN ×2 (12:56)
[2021-12-01] MEDS ORDERED: Terbutaline 1 MG/ML SDV SUBCUT PRN (12:56)
[2021-12-01] MEDS ORDERED: Ibuprofen 800 MG Tab PO PRN (13:40)
[2021-12-01] MEDS ORDERED: Benzocaine/Menthol 20%-0.5% Spray 78 GM Cannister TOP PRN (13:40)
[2021-12-01] MEDS ORDERED: Ibuprofen 400 MG Tab PO PRN (13:40)
[2021-12-01] MEDS ORDERED: Bisacodyl 10 MG Supp RECTAL PRN (13:40)
[2021-12-01] MEDS ORDERED: Docusate Sodium 100 MG Cap PO PRN (13:40)
[2021-12-01] MEDS ORDERED: oxyCODONE 5 MG Tab PO PRN (13:40)
[2021-12-01] MEDS ORDERED: Witch Hazel Medicated Pads 40/Jar TOP PRN (13:40)
[2021-12-01] MEDS ORDERED: Acetaminophen 500 MG Tab PO PRN ×2 (13:40)
[2021-12-01] MEDS ORDERED: Lanolin 100% Cream 7 GM Tube TOP PRN (13:40)
[2021-12-02 08:15] VITALS: BP 111/74; PULSE 65
== END 2021-12-02 16:36 | disposition home or self-care (01) | DRG 807 ==
LOC: MW.OBCHECK 03:00 → MW.OB 03:06 → MW.OBCHECK 03:22 → MW.OB 03:22 → OBSVTOIN 13:14 → MW.OB 19:58
PROVIDERS: ADMIT Obstetrics & Gynecology; ATTEND Obstetrics & Gynecology
PROC: 10E0XZZ Delivery of Products of Conception, External Approach (ICD-10-PCS; principal; 2021-12-01)
PROC: 0HQ9XZZ Repair Perineum Skin, External Approach (ICD-10-PCS; 2021-12-01)
PROC: 3E0R3BZ Introduction of Anesthetic Agent into Spinal Canal, Percutaneous Approach (ICD-10-PCS; 2021-12-01)
PROC: 00HU33Z Insertion of Infusion Device into Spinal Canal, Percutaneous Approach (ICD-10-PCS; 2021-12-01)
PROC: 10907ZC Drainage of Amniotic Fluid, Therapeutic from Products of Conception, Via Natural or Artificial Opening (ICD-10-PCS; 2021-12-01)
DX: O99.824 Streptococcus B carrier state complicating childbirth (principal); Z37.0 Single live birth; O70.0 First degree perineal laceration during delivery; Z3A.39 39 weeks gestation of pregnancy; Z20.822 Contact with and (suspected) exposure to COVID-19; O99.334 Smoking (tobacco) complicating childbirth; F17.210 Nicotine dependence, cigarettes, uncomplicated
CPT/HCPCS: 36415; 51702; 59025; 59409; 80305-QW; 82803; 85014; 85018; 85027; 86592; 86850; 86900; 86901; A9270-GY; J0290; J2590; J2795; J7120; U0002

== ENCOUNTER 2022-08-03 12:55 | Emergency (ER) | payer MEDICAID ==
[2022-08-03 17:10] VITALS: BP 118/65; PULSE 78
== END 2022-08-03 17:08 | disposition home or self-care (01) ==
LOC: MW.ED 12:55
DX: N89.8 Other specified noninflammatory disorders of vagina (principal); Z88.5 Allergy status to narcotic agent; Z88.8 Allergy status to other drugs, medicaments and biological substances
CPT/HCPCS: 99283

== ENCOUNTER 2024-05-28 22:51 | Emergency (ER) | payer MEDICAID ==
[2024-05-29 00:19] VITALS: BP 143/92; PULSE 93
== END 2024-05-29 00:23 | disposition home or self-care (01) ==
LOC: MW.ED 22:51
DX: G56.03 Carpal tunnel syndrome, bilateral upper limbs (principal); R21 Rash and other nonspecific skin eruption; Z75.8 Other problems related to medical facilities and other health care; Z88.8 Allergy status to other drugs, medicaments and biological substances; Z79.899 Other long term (current) drug therapy; Z90.49 Acquired absence of other specified parts of digestive tract
CPT/HCPCS: 99283

== ENCOUNTER 2025-04-01 04:30 | Emergency (ER) | payer MEDICAID ==
[2025-04-01 04:53] LABS: APPEARANCE,URINE CLEAR; GLUCOSE,URINE NEGATIVE (NEGATIVE); OCCULT BLOOD,URINE TRACE-INTACT (NEGATIVE)
[2025-04-01 04:58] LABS: EPITHELIAL CELLS,URINE RARE (NONE-FEW); YEAST,URINE RARE
[2025-04-01 05:13] VITALS: BP 129/83; PULSE 110
[2025-04-01 06:22] LABS: C. TRACHOMATIS BY PCR NOT DETECTED; N. GONORRHOEAE BY PCR NOT DETECTED
== END 2025-04-01 05:20 | disposition home or self-care (01) ==
LOC: MW.ED 04:30
DX: B37.31 Acute candidiasis of vulva and vagina (principal); Z88.5 Allergy status to narcotic agent; Z88.8 Allergy status to other drugs, medicaments and biological substances; Z79.899 Other long term (current) drug therapy
CPT/HCPCS: 81001; 81025; 87491; 87591; 96372; 99283; A9270; J0696; J2003